=== PATIENT | female | born 1985 | race Caucasian/White ===

== ENCOUNTER 2017-07-07 16:12 | Inpatient (IN) ==
[2017-07-07] MEDS ORDERED: FAMOTIDINE PB 20 MG/50 ML BAG IV ONE ×2 (16:19→16:47)
[2017-07-07] MEDS ORDERED: CITRIC ACID/SODIUM CITRATE 30ml PO ONE ×2 (16:19→16:47)
--- OUTSIDE RECORDS SUMMARY | 2017-07-07 16:20 | External Medical Summary | Continuity of Care Document ---
:1985 Author Organization [facility] Address [address] [place], [place] [id number] Phone Care Team Providers Name Role Phone Bobby Harmon Unavailable Unavailable Allergies, Adverse Reactions, Alerts Substance Reaction Severity Status No Known Drug Allergies Unknown Active Medications Medication Instructions Dosage Effective Dates Status Comments (start - stop) 28 mg take 1 tablet by Not Available - Active iron-800 mcg oral route every tablet day folic acid 800 mcg take 1 tablet by 0.8 MG - Active Tab oral route every day Problems Condition Effective Dates (start - stop) Clinical Status 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) - (routine) w/o abn findings Supervision of other high risk - pregnancies, second trimester Twin , - dichorionic/diamniotic, second trimester 20 weeks gestation of - Secondary amenorrhea Uterine size-date discrepancy, unspecified trimester Secondary amenorrhea Irregular Menses Supervision of other high risk - pregnancies, first trimester Twin , - dichorionic/diamniotic, first trimester Encntr screen for infections w sexl - mode of transmiss Encounter for screening for oth - infec/parastc diseases Encounter for screening of - mother 12 weeks gestation of - Supervision of other high risk - pregnancies, first trimester Twin , - dichorionic/diamniotic, second trimester 15 weeks gestation of - Supervision of other high risk - pregnancies, second trimester 20 weeks gestation of - Uterine size-date discrepancy, - unspecified trimester Twin , - monochorionic/diamniotic, first trimester Twin , - dichorionic/diamniotic, first trimester Pap Smear Screening, Cervix - Encounter for test, result unknown Encounter for test, result unknown Procedures Procedure Date Ultrasound exam of preg uterus, complete Ultrasound exam of preg uterus, complete, Each Addtl Gestation Results Test Name Date and Time Measure Units Reference Range Abnormal Flag Comments Unknown Advance Directives Directive Yes / No Effective Date File Name Unknown Encounters Encounter Practice Location Reason(s) Diagnoses Date Provider Care Team Description For Visit Members Yady Juarez Supervision of Farhad Referring In Womens other high risk [place] [address] Provider: Health [place], pregnancies, 7 Medical Isabelle PO Box second Center [facility], [facility] 1522, [email or web address] weeks , [facility] Lina, gestation of 120, [address] [place], [facility], , Larry [place], [id number] [place], tel:+ , [place]. [id number]. tel: tel:+[phone] Yady [place] Supervision of Farhad Referring In Womens Ultrasound other high risk [place] [address] Provider: Health [place], pregnancies, 7 Medical Isabelle PO Box second [facility], [facility] 1522, trimesterTmohit Monae, [facility] Lina, , 120, [address] F[place], dichorionic/diamn Larry, [facility] 120, , iotic, second Larry FLEMING, [email or web address] weeks [id number] [place], tel:+ gestation of , [place]. [id number]. tel: tel:+[phone] Yady Juarez Supervision of Farhad Referring In Womens other high risk [place] [address] Provider: Health [place], pregnancies, 7 Medical Isabelle PO Box first [facility], 700 1522, trimesterTwin , [facility] [place], , 120, [address] F[place], dichorionic/diamn Larry, [place] 120, , iotic, second LONNIE, Larry, [place] [id number] weeks [place]ONNIE, tel: gestation of , [place]. [id number]. tel: tel:+[phone] Yady [place] Supervision of December-3 Farhad Referring In Womens other high risk 1-201 [place]. 700 Provider: Health [place], pregnancies, 7 Medical Isabelle PO Box [facility], 700 1522, trimesterTmohit Monae, [facility] Lina, , 120, [address] FLEM[place], dichorionic/diamn [place], [facility] 120, , iotic, first [place]ONNIE, [place], [place] trimesterEncntr [place], tel: screen for , [place]. [id number] infections w sexl tel: tel:+[phone] mode of [phone] transmissEncounte r for screening for oth infec/parastc diseasesEncounter for screening of weeks gestation of Yady Juarez Secondary December-1 Farhad Referring In Womens amenorrhea 0-201 [place]. 700 Provider: Health [place], 7 Medical Isabelle PO Box [facility], 700 1522, , [facility] [place], 120, [address] FLE[place], [place], [facility] 120, , [place]ONNIE, [place], [place] [id number] [place], tel: , [place]. [id number]. tel: tel:[phone] aYdy [place] Uterine size-date December- Farhad Referring In Womens Ultrasound discrepancy, 0-201 [place]. 700 Provider: Health [place], unspecified 7 Medical Isabelle PO Box trimesterTwin [facility], 700 1522, , Dr, [facility] [place], monochorionic/celsa 120, Center Dr FLEM[place], mniotic, first [place], [facility] 120, , trimesterTwin Larry F[place], [place] , [place], tel:+ dichorionic/diamn , [place]. [id number] iotic, first tel: tel:[phone] trimester [phone] Yady [place] Secondary Apr-2 Farhad Referring In Womens amenorrheaUterine 0-201 [place]. 700 Provider: Health FAZAL, size-date 7 Medical Isabelle PO Box discrepancy, Center [facility], 700 1522, unspecified , [facility] Lina, trimester 120, Center Dr FLE[place], [place], Denis 120, [id number], [place]ONN[place], [place], [id number] [place], tel: , [place]. [id number]. tel: tel: [phone] Associates Larry Irregular Menses Apr-0 [place] In Womens 4-201 Jennifer. Health FAZAL, 7 700 PO Box Medical 1522, [address] Lina, [facility] LONNIE, 120, [id number], [place], [place], tel:[phone] , [place]. tel: [phone] Associates Larry Encounter for Feb- [place] In Womens test, - Jennifer. Health FAZAL, result 7 700 PO Box unknownEncounter [facility] 1522, for [facility], test, result , [facility], unknown 120, , [place], [place], tel:[phone] , [place]. 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 Provider: Health FAZAL, (routine) w/o abn 6 700 Isabelle PO Box findingsPap Smear [facility], 700 1522, Screening, Cervix Center [facility] Dr Lina, [facility] Dr FLEMING, 120, Denis 120, [id number], [place], [place], [place], tel:[phone]. , [place]. tel: tel: [phone] Associates Larry December- [place] In Womens 3-201 Jennifer. Health FAZAL, 2 700 PO Box Medical 1522, [address] Lina, [facility] LONNIE, 120, [id number], [place], [place], tel:[phone] , [place]. tel: [phone] Family History Family Member Diagnosis Age At Onset Paternal Grandfather Diabetes mellitus Maternal Grandfather Hypertension Maternal Grandmother Cardiovascular Disease Paternal Grandmother Cardiovascular Disease Paternal Grandmother Cancer, colon 91 Paternal Grandfather Stroke Mother Cancer, breast 45 Maternal Grandmother Osteoporosis Paternal Grandmother Diabetes mellitus Maternal Grandmother Diabetes mellitus Immunizations Vaccine Date Status Comments Unknown Payers Payer name Insurance type Covered constitution party ID Authorization(s) [employer] [place] [id number] Social History Type Description Quantity Date Captured Unknown Vital Signs Date / Height Weight BMI Pulse Blood Temperature Respiratory Body Head BMI Time: Rate Pressure Rate Surface Circumference percentile Area Unknown Chief Complaint And Reason For Visit Unknown Chief Complaint And Reason For Visit Reason For Referral Reason For Referral Unknown Plan Of Care Date Type Action Status Goal Lifestyle education regarding completed diet Appointment Bryanna Bishop BOOKED Future Order: Radiology Order Complete OB Ultrasound > 14 Ordered Weeks ([id number]) Future Order: Lab Order Pap Smear With HPV Reflex If Ordered ASCUS ([id number]) Date Type Problem Goal Intervention Status Start Date Unknown. History Of Present Illness Encounter Date Complaint History Of Present Illness This patient has no known history of present illness Functional Status Encounter Date Functional Assessment Cognitive Assessment Unknown Medications Administered Medication Instructions Dosage Effective Dates (start - stop) Status Comments Drug Treatment Unknown Instructions Date Instruction Additional Information HIV and other routine tests risk factors identified by history anticipated course of care nutrition and weight gain counseling, special diet toxoplasmosis precautions (cats / raw meat) sexual activity exercise indications for ultrasound influenza vaccine environmental / work hazards travel use of any medications (including supplements, vitamins, herbs, OTC drugs) domestic violence seat belt use childbirth classes / hospital facilities hospital registration genetic testing new ob handbook Zika virus assessment & precautions Giving encouragement to exercise Related to Body mass index 33.0-33.9 Lifestyle education regarding diet Related to Body mass index 33.0-33.9
--- OUTSIDE RECORDS SUMMARY | 2017-07-07 16:21 | External Medical Summary | Continuity of Care Document ---
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 findings Twin , - dichorionic/diamniotic, second trimester 24 weeks gestation of - Secondary amenorrhea Uterine [...] second trimester 15 weeks gestation of - Twin , - monochorionic/diamniotic, first trimester Twin , - dichorionic/diamniotic, first trimester Uterine size-date discrepancy, - unspecified trimester Supervision of other high risk - pregnancies, second trimester Twin , - dichorionic/diamniotic, second trimester 20 weeks gestation of - Supervision of other high risk - pregnancies, second trimester 20 weeks gestation of - Pap Smear Screening, Cervix - Encounter for test, result unknown Encounter for test, result unknown Procedures Procedure Date OB Visit No Charge Results Test Name Date and Time Measure Units Reference Range Abnormal Flag Comments Unknown Advance Directives Directive Yes / No Effective Date File Name Unknown Encounters Encounter Practice Location Reason(s) Diagnoses Date Provider Care Team Description For Visit Members Yady Ju[place] Twin , Farhad Referring In Womens dichorionic/diamn -201 [place]. 700 Provider: David DIEHL [facility], [facility] 7 Medical Isabelle PO Box weeks [facility], 700 1522, gestation of Dr, [facility] [place], 120, [address] [place], Larry, [facility] 120, [id number], LONNIE, [place], [id number] [place], tel: , [place]. [id number]. [id number] tel: tel:[phone] Yady [place] Supervision of Feb- Farhad Referring In Womens other high risk [place]. 700 Provider: Health FAZAL, pregnancies, 7 Medical Isabelle PO Box [facility], 700 1522, [email or web address] weeks Denis Monae, gestation of 120, [address] Dr F[place], Larry, [facility] 120, [id number], LONNIE, [place], [id number] [place], tel: , . [id number]. [id number] tel: tel:[phone] Yady [place] Supervision of Feb- Farhad Referring In Womens Ultrasound other high risk [place]. 700 Provider: Health [place], pregnancies, 7 Medical Isabelle PO Box second Center [facility], 700 1522, trimesterTwin Denis Monae, , 120, Center Dr FLE[place], dichorionic/diamn Larry, Denis 120, [id number], iotic, second Larry F[place], [place] [id number] weeks [id number] [place], tel:+2 gestation of , [place]. [id number]. tel: tel:+[phone] Yady [place] Supervision of Matt-2 Farhad Referring In Womens other high risk 3-201 [place]. 700 Provider: Health [place], pregnancies, 7 Medical Isabelle PO Box first Center [facility], 700 1522, trimesterTmohit Monae, [facility], , 120, [address] Dr FLE[place], dichorionic/diamn Larry, Denis 120, [id number], iotic, second LONNIE, [place], [place] [id number] weeks [id number] LONNIE, tel:+[phone] gestation of , [place]. [id number] tel: tel:+[phone] Yady [place] Supervision of December-3 Farhad Referring In Womens other high risk 1-201 [place]. 700 Provider: Health [place], pregnancies, 7 Medical Isabelle PO Box first Center [facility], 700 1522, trimesterTmohit Monae, [facility], , 120, Center Dr F[place], dichafshanonic/diamn Larry, [facility] 120, , iotic, first LONNIE, [place], [place] trimesterEncntr [id number] [place], tel:+ screen for , [place]. [id number]. [id number] infections w sexl tel: tel:+[phone] mode of [phone] transmissEncounte r for screening for oth infec/parastc diseasesEncounter for screening of bevecp52 weeks gestation of Yady Juarez Secondary December-1 Farhad Referring In Womens amenorrhea 0-201 [place]. 700 Provider: Health [place], 7 Medical Isabelle PO Box Center [facility], 700 1522, , [facility], 120, Center Larry Anderson, [facility] 120, [id number], LONNIE [place], [place] [id number] [place], tel:+[phone] , [place]. [id number] tel: tel:[phone] Yady [place] Twin , December-1 Farhad Referring In Womens Ultrasound monochorionic/celsa 0-201 [place]. 700 Provider: David DIEHL, mniotic, first 7 Medical Isabelle PO Box trimesterTwin [facility], 700 1522, , , [facility] Lina, dichorionic/diamn 120, Center Dr FLEM[place], iotic, first [place], Denis 120, , trimesterUterine [place], [place], [place] size-date [place], tel: discrepancy, , [place]. [id number]. unspecified tel: tel: trimester [phone] Associates Larry Secondary Apr-2 Farhad Referring In Womens amenorrheaUterine 0-201 [place]. 700 Provider: David DIEHL, size-date 7 Medical Isabelle PO Box discrepancy, [facility], 700 1522, unspecified , [facility] Lina, trimester 120, Center Dr F[place], [place], [place] 120, , [place], [place], [place], tel: , [place]. [id number]. tel: tel: [phone] Associates Larry Irregular Menses Apr-0 [place] In Womens 4-201 Jennifer. David DIEHL, 7 700 PO Box Medical 1522, [address] Lina, [facility] LONNIE, 120, , [place], [place], tel: [phone] , [place]. tel: [phone] Yady [place] Encounter for Sep-1 [place] In Womens test, 3-201 Jennifer. Health FAZAL, result 7 700 PO Box unknownEncounter Medical 1522, for [facility], test, result , [facility] LONNIE, unknown 120, , [place], [place], tel: [phone] , [place]. 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 Provider: David DIEHL, (routine) w/o abn 6 700 Isabelle PO Box findingsPap Smear [facility], 700 1522, Screening, Cervix [facility] Lina, [facility] Dr FLEMING, 120, Denis 120, [id number], Larry [place], [place], [place], tel: [phone]. , [place]. tel: tel: [phone] Yady [place] December- [place] In Womens 3-201 Jennifer. [facility], 2 700 PO [facility] 1522, [place] [place]ina, , Denis [place], 120, [id number], Larry, LONNIE, tel: [phone] , . tel: [phone] Family History Family Member Diagnosis Age At Onset Paternal Grandfather Diabetes mellitus Maternal Grandfather Hypertension Maternal Grandmother Cardiovascular Disease Paternal Grandmother Cardiovascular Disease Paternal Grandmother Cancer, colon 91 Paternal Grandfather Stroke Mother Cancer, breast 45 Maternal Grandmother Osteoporosis Paternal Grandmother Diabetes mellitus Maternal Grandmother Diabetes mellitus Immunizations Vaccine Date Status Comments Unknown Payers Payer name Insurance type Covered green party ID Authorization(s) [facility] LONNIE [id number] Social History Type Description Quantity Date Captured Alcohol Use Details No Caffeine Use Details Unknown Tobacco Use Status Unknown Smoking Status Never smoker Vital Signs Date / Height Weight BMI Pulse Blood Temperature Respiratory Body Head BMI Time: Rate Pressure Rate Surface Circumference percentile Area 160.70 26.7 lbs 4 mm[Hg] 1:39 kg/m PM eter (2) 260.70 43.3 lbs 8 mm[Hg] 1:39 kg/m PM eter (2) Chief Complaint And Reason For Visit Unknown Chief Complaint And Reason For Visit Reason For Referral Reason For Referral Unknown Plan Of Care Date Type Action Status Goal Lifestyle education regarding completed diet Appointment Bryanna Bishop BOOKED Appointment Bryanna Bishop BOOKED Future Order: Radiology Order Complete OB Ultrasound > 14 Ordered Weeks ([id number]) Future Order: Lab Order Pap Smear With [...]
--- OUTSIDE RECORDS SUMMARY | 2017-07-07 16:21 | External Medical Summary | Continuity of Care Document ---
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 700 Provider: Health PA, pregnancies, 7 Medical Isabelle PO Box [facility], [facility] 1522, [email or web address] weeks , [facility], gestation of 120, Center Dr F[place], [place], [place] 120, , LONNIE, [place], [id number] [place], tel:+ , [place]. [id number]. tel: tel:[phone] Yady [place] Supervision of Farhad Referring In Womens Ultrasound other high risk [place]. 700 Provider: Health PA, pregnancies, 7 Medical Isabelle PO Box [facility], [facility] 1522, trimesterTwin , [facility], , 120, Center Dr F[place], dichorionic/diamn Larry, [place] 120, [id number], iotic, second Larry FLEMING, [id number] weeks LONNIE, tel: gestation of , [place]. [id number]. tel: tel:+[phone] Yady [place] Farhad Referring In Womens 6-201 [place]. 700 Provider: Health PA, 7 Medical Isabelle PO Box [facility], [facility] 1522, , [facility], 120, [address] Dr F[place], Larry, [place] 120, [id number], LONNIE, [place], [id number] [place], tel: , [place]. [id number]. tel: tel:+ [phone] Yady [place] Supervision of Jan-2 Farhad Referring In Womens other high risk 3-201 [place]. 700 Provider: Health PA, pregnancies, 7 Medical Siabelle PO Box rust Center [facility], 700 1522, trimesterTmohit Monae, [facility] [place], , 120, Center Dr F[place], dichorionic/diamn Larry, [place] 120, [id number], iotic, second LONNIE, [place], [email or web address] weeks [id number] [place]IE, tel:2 gestation of , [place]. [id number]. tel: tel:[phone] Yady [place] Supervision of December-3 Farhad Referring In Womens other high risk 1-201 [place]. 700 Provider: Health PA, pregnancies, 7 Medical Isabelle PO Box [facility], 700 1522, trimesterTmohit Monae, [facility] [place], , 120, Center Dr FLE[place], dichorionic/diamn Larry, [place] 120, [id number], iotic, first LONNIE, [place], trimesterEncntr [id number] [place]IE, tel: screen for , [place]. [id number]. infections w sexl tel: tel: mode of [phone] transmissEncounte r for screening for oth infec/parastc diseasesEncounter for screening of [id number] weeks gestation of Yady [place] Secondary December- Farhad Referring In Womens amenorrhea 0-201 [place]. 700 Provider: David DIEHL, 7 Medical Isabelle PO Box [facility], 700 1522, , [place], 120, [address] Dr F[place], Larry, [place] 120, [id number], [place]NIE, [place], [id number] [place], tel: , [place]. [id number]. tel: tel:[phone] Yady [place] Uterine size-date December- Farhad Referring In Womens Ultrasound discrepancy, 0-201 [place]. 700 Provider: Health FAZAL, unspecified 7 Medical Isabelle PO Box trimesterTwin [facility], 700 1522, , Dr, [place], monochorionic/celsa 120, Center Dr FLEMING, mniotic, first [place], Denis 120, [id number], trimesterTwin LONNIE, [place], , [place], tel: dichorionic/diamn , [place]. . iotic, first tel: tel: trimester [phone] Associates Larry Secondary Apr-2 Farhad Referring In Womens amenorrheaUterine 0-201 [place]. 700 Provider: Health FAZAL, size-date 7 Medical Isabelle PO Box discrepancy, [facility], 700 1522, unspecified , [facility] [place], trimester 120, Center Dr F[place], [place], Denis 120, , [place], [place], [place], tel: , [place]. . tel: tel: [phone] Associates Larry Irregular Menses Apr-0 [place] In Womens 4-201 Jennifer. Health FAZAL, 7 700 PO Box Medical 1522, [place] [address] Lina, [place], 120, [id number], [place], [place], tel:[phone] , [place]. tel: [phone] Yady [place] Encounter for Feb-1 [place] In Womens test, 3-201 Jennifer. Health FAZAL, result 7 700 PO Box unknownEncounter Medical 1522, for [facility] [place], test, result , [place] LONNIE, unknown 120, , [place], [place], tel:[phone] , [place]. 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 Provider: Health FAZAL, (routine) w/o abn 6 700 Isabelle PO Box findingsPap Smear [facility], 700 1522, Screening, Cervix [place] [address], [facility] Dr FLEMING, 120, Denis 120, [id number], Larry, [place], [place], [place], tel:[phone]. , [place]. tel: tel: [phone] Yady [place] In Womens 3-201 Jennifer. [facility], 2 700 PO Box Medical 1522, [address] [place] [address] Lina, [place], 120, [id number], [place], [place], tel:[phone] , [place]. tel: [phone] Family History Family Member Diagnosis Age At Onset Paternal Grandfather Diabetes mellitus Maternal Grandfather Hypertension Maternal Grandmother Cardiovascular Disease Paternal Grandmother Cardiovascular Disease Paternal Grandmother Cancer, colon 91 Paternal Grandfather Stroke Mother Cancer, breast 45 Maternal Grandmother Osteoporosis Paternal Grandmother Diabetes mellitus Maternal Grandmother Diabetes mellitus Immunizations Vaccine Date Status Comments Unknown Payers Payer name Insurance type Covered libertarian ID Authorization(s) [facility] LONNIE [id number] Social History Type Description Quantity Date Captured [...] Complete OB Ultrasound > 14 Ordered Weeks ([id number]) Future Order: Lab Order Pap Smear With [...]
--- OUTSIDE RECORDS SUMMARY | 2017-07-07 16:21 | External Medical Summary | Continuity of Care Document ---
:1985 Author Organization [facility] Address [address] [place], [place] [id number] Phone Allergies, Adverse Reactions, Alerts Substance Reaction Severity Status No Known Drug Allergies Unknown Active Medications Medication Instructions Dosage Effective Dates Status Comments (start - stop) Rhophylac 1,500 - Active unit (300 mcg)/2 mL injection syringe 28 mg take 1 tablet by Not Available - Active iron-800 mcg oral route every tablet day folic acid 800 mcg take 1 tablet by 0.8 MG - Active Tab oral route every day Problems Condition Effective Dates (start - stop) Clinical Status Encntr for rn gynecology exam (general) - (routine) w/o abn findings Supervision of other high risk - pregnancies, third trimester 28 weeks gestation of - Type O blood, Rh negative - Secondary amenorrhea Uterine size-date discrepancy, unspecified [...] Supervision of other high risk - pregnancies, third trimester Twin , - dichorionic/diamniotic, third trimester 28 weeks gestation of - Uterine size-date discrepancy, - unspecified trimester Twin , - monochorionic/diamniotic, first trimester Twin , - dichorionic/diamniotic, first trimester Twin , - dichorionic/diamniotic, second trimester 24 weeks gestation of - Twin , - dichorionic/diamniotic, third trimester 30 weeks gestation of - Pap Smear Screening, Cervix - Encounter for test, result unknown Encounter for test, result unknown Procedures Procedure Date Injection Administration Rhophylac 100 Units Antibody Screen, RBC Glucose test Hemoglobin count, colorimetric Hematocrit blood count Venpnctr fngr/heel/ear stick routne OB Visit No Charge Results Test Name Date and Time Measure Units Reference Range Abnormal Flag Comments Panel Description: Glucose [Mass/volume] in Serum or Plasma --1 hour post 50 g glucose PO GLUCOSE, 127 mg/dL <140 N Test performed at [facility] [employer] S[employer]EN 16:05:00 Tutor [id number] (50G)-[address] [place] [address]Aalsyboc: SIM OLMSTEAD DO,MPH Panel Description: HEMOGLOBIN + HEMATOCRIT HEMOGLOBIN 16:05:00 11.7 g/dL 11.7-15.5 N HEMATOCRIT 16:05:00 34.2 % 35.0-45.0 L Test performed at [facility] [id number] [facility] [place] [address]Lfoynqbl: SIM OLMSTEAD DO,MPH Panel Description: ANTIBODY SCREEN, RBC W/REFL ID, TITER AND AG ANTIBODY NO ANTIBODIES N Reference range SCREEN, RBC 16:05:00 DETECTED No antibodies W/REFL ID, detected This assay is a TITER AND AG screening test for the detection of red blood cell antibodies. The test is not to be used for pretransfusion screening or for the medical management of an alloimmunized . REPORT COMMENT:FASTING:UNKNOWNTest performed at [facility] [id number] [place] [address]Aueblxmt: SIM OLMSTEAD DO,MPH Advance Directives Directive Yes / No Effective Date File Name Unknown Encounters Encounter Practice Location Reason(s) Diagnoses Date Provider Care Team Description For Visit Members Yady [place] Twin , Farhad Referring In Womens dichorionic/diamn 5-201 [facility] 700 Provider: David DIEHL [facility] [place] [address] Medical Isabelle [address] [id number] weeks [place] [address] 1522, gestation of Dr [facility] [place], 120, [place] Anderson, [facility] 120, , Larry [place], [id number] [place], tel: , [place]. [id number]. [id number] tel: tel: [phone] Yady [place] Supervision of Sep-2 Farhad Referring In Womens other high risk 0-201 [place]. 700 Provider: David DIEHL, pregnancies, 7 Medical Isabelle PO Box third [place] [address]22, weeks gestation Denis Monae, of pregnancyType 120, Center Dr FLE[place], O blood, Rh Larry, [facility] 120, , negative Larry F[place], [id number] [place], tel: , . [phone]. [id number] tel: tel: [phone] Yady [place] Supervision of Sep-2 Farhad Referring In Womens Ultrasound other high risk 0-201 [place]. 700 Provider: David DIEHL, pregnancies, 7 Medical Isabelle PO Box third [place] [address] 1522, trimesterTwin Denis Monae, , 120, Center Dr FLEM[place], dichorionic/diamn Larry, [facility] 120, , iotic, third Larry [place], [place] [email or web address] weeks [id number] [place], tel:+ gestation of , [place]. [id number]. tel: tel:+[phone] Yady [place] Twin , Aug-2 Farhad Referring In Womens dichorionic/diamn 5-201 [place]. 700 Provider: Health PA, iotic, second 7 Medical Isabelle PO Box weeks [facility], [facility] 1522, gestation of , [facility] [place], 120, [address] F[place], [facility], [id number], [place], [place] [id number] [place], tel: , [place]. [id number]. [address] tel: tel:[phone] [place] Supervision of Feb-2 Farhad Referring In Womens other high risk 7-201 [place]. 700 Provider: Health [place], pregnancies, 7 Medical Isabelle PO Box second [facility], [facility] 1522, [id number] weeks Dr [facility] Lina, gestation of 120, [place] Dr FLEMING, [facility] 120, , [place], [place], tel: , [place]. [phone]. [address] tel: tel:[phone] [place] Supervision of Feb-2 Farhad Referring In Womens Ultrasound other high risk 7-201 [place]. 700 Provider: Health PA, pregnancies, 7 Medical Isabelle PO Box second [facility], [facility] 1522, trimesterTmohit Monae [facility] [place], , 120, Center Dr FLEM[place], [facility] 120, , iotic, second [place]NIE, [place], [place] [email or web address] weeks [place]IE, tel:+ gestation of , [place]. [id number]. [address] tel: tel:+[phone] [place] Supervision of Matt-2 Farhad Referring In Womens other high risk 3-201 [place]. 700 Provider: Health [place], pregnancies, 7 Medical Isabelle PO Box first [facility], [facility] 1522, trimesterTmohit Monae [facility] Lina, , 120, Center Dr FLEM[place], dichorionic/diamn Larry, [facility] 120, [id number], iotic, second [place]ONNIE, [place], [email or web address] weeks [place]NIE, tel: gestation of , [place]. [id number]. tel: tel:[phone] Yady [place] Supervision of Farhad Referring In Womens other high risk 1-201 [place]. 700 Provider: Health PA, pregnancies, 7 Medical Isabelle PO Box [facility], 700 1522, trimesterTwin , [facility], , 120, Center Dr FLEM[place], dichorionic/diamn Larry, [facility] 120, , iotic, first [place]ONNIE, [place], trimesterEncntr [place]IE, tel: screen for , [place]. [id number]. infections w sexl tel: tel:[phone] mode of [phone] transmissEncounte r for screening for oth infec/parastc diseasesEncounter for screening of [id number] weeks gestation of Yady [place] Secondary December- Farhad Referring In Womens amenorrhea 0-201 [place]. 700 Provider: David DIEHL, 7 Medical Isabelle PO Box [facility], [facility] 1522, , [facility], 120, Center Larry Anderson, [facility] 120, [id number], [place] [id number] [place], tel: , [place]. [id number] tel: tel:[phone] Yady [place] Uterine size-date December- Farhad Referring In Womens Ultrasound discrepancy, 0-201 [place]. 700 Provider: Health PA, unspecified 7 Medical Isabelle PO Box trimesterTwin [facility], [facility] 1522, , Dr, [facility] Lina, monochorionic/celsa 120, Center Dr FLEM[place], mniotic, first [place], [facility] 120, [id number], trimesterTwin Larry FLEMING, , [place]IE, tel: dichorionic/diamn , [place]. [id number] iotic, first tel: tel: trimester [phone] Yady [place] Secondary Apr-2 Farhad Referring In Womens amenorrheaUterine 0-201 [place]. 700 Provider: David DIEHL, size-date 7 Medical Isabelle PO Box discrepancy, [facility], 700 1522, unspecified , [facility] Lina, trimester 120, Center Dr FLEM[place], Larry, Denis 120, [id number], [place], [place], [id number] [place], tel: , [place]. [id number]. tel: tel: [phone] Associates [place] Irregular Menses Apr-0 [place] In Womens 4-201 Jennifer. David DIEHL, 7 700 PO Box Medical 1522, [place] Dr Lina, [facility] LONNIE, 120, [id number], [place], [place], tel:[phone] , [place]. tel: [phone] Yady [place] Encounter for Sep- Jean Pierre In Womens test, 3-201 Jennifer. David DIEHL, result 7 700 PO Box unknownEncounter [facility] 1522, for [facility], test, result , [facility] LONNIE, unknown 120, [id number], [place], [place], tel:[phone] , [place]. tel: [phone] Yady [place] Encntr for rn gynecology Matt-0 [place] Referring In Womens exam (general) 8-201 Jennifer. Provider: David DIEHL, (routine) w/o abn 6 700 Isabelle PO Box findingsPap Smear [facility], 700 1522, Screening, Cervix [facility] Dr Lina, [facility] Dr FLEMING, 120, Denis 120, [id number], Larry, [place], [place], [place], tel:[phone]. , [place]. tel: tel: [phone] Yady [place] May-1 [place] In Womens 3-201 Jennifer. David DIEHL, 2 700 PO Box Medical 1522, [place] Dr Lina, [facility] LONNIE, 120, [id number], [place], [place], tel:[phone] , [place]. tel:[phone] Family History Family Member Diagnosis Age At Onset Paternal Grandfather Diabetes mellitus Maternal Grandfather Hypertension Maternal Grandmother Cardiovascular Disease Paternal Grandmother Cardiovascular Disease Paternal Grandmother Cancer, colon 91 Paternal Grandfather Stroke Mother Cancer, breast 45 Maternal Grandmother Osteoporosis Paternal Grandmother Diabetes mellitus Maternal Grandmother Diabetes mellitus Immunizations Vaccine Date Status Comments Rhophylac completed Source: New Immunization Record Influenza, injectable, completed Source: Other Provider quadrivalent, preservative free, 3 yrs or older Payers Payer name Insurance type Covered republican ID Authorization(s) [facility] [id number] [facility] [id number] Social History Type Description Quantity Date Captured Alcohol Use Details No Caffeine Use Details Unknown Tobacco Use Status Unknown Smoking Status Never smoker Vital Signs Date / Height Weight BMI Pulse Blood Temperature Respiratory Body Head BMI Time: Rate Pressure Rate Surface Circumference percentile Area 268.00 44.5 130/84 -2017 lbs 9 mm[Hg] 4:09 kg/m PM eter (2) Chief Complaint And Reason For Visit Unknown Chief Complaint And Reason For Visit Reason For Referral Reason For Referral Unknown Plan Of Care Date Type Action Status Goal Lifestyle education regarding completed diet Appointment Bryanna Bishop BOOKED Appointment Bryanna Bishop BOOKED Appointment Bryanna Bishop BOOKED Appointment Bryanna Bishop BOOKED Appointment Bryanna Bishop BOOKED Appointment Bryanna Bishop BOOKED Appointment Bryanna Bishop BOOKED Appointment Bryanna Bishop BOOKED Appointment Bryanna Bishop BOOKED Appointment Bryanna Bishop BOOKED Appointment Bryanna Bishop BOOKED Appointment Bryanna Bishop BOOKED Future Order: Radiology Order Complete OB Ultrasound > 14 Ordered Weeks ([id number]) Future Order: Radiology Order Ultrasound OB Follow-up ([id number]) Ordered Future Order: Lab Order Pap Smear With [...]
--- OUTSIDE RECORDS SUMMARY | 2017-07-07 16:21 | External Medical Summary | Continuity of Care Document ---
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 Secondary amenorrhea Uterine size-date discrepancy, unspecified trimester Supervision of other high risk - pregnancies, third trimester 28 weeks gestation of - Type O blood, Rh negative - Secondary amenorrhea Irregular Menses Supervision of other [...] third trimester 28 weeks gestation of - Supervision of other high risk - pregnancies, third trimester Twin , - dichorionic/diamniotic, third trimester 33 weeks gestation of - Supervision of other high risk - pregnancies, third trimester Twin , - dichorionic/diamniotic, third trimester 34 weeks gestation of - Uterine size-date discrepancy, - unspecified trimester Twin , - monochorionic/diamniotic, first trimester Twin , - dichorionic/diamniotic, first trimester Twin , - dichorionic/diamniotic, second trimester 24 weeks gestation of - Twin , - dichorionic/diamniotic, third trimester Maternal care for breech presentation, - fetus 1 33 weeks gestation of - Twin , - dichorionic/diamniotic, third trimester 35 weeks gestation of - Twin , - dichorionic/diamniotic, third trimester 30 weeks gestation of - Twin , - dichorionic/diamniotic, third trimester 35 weeks gestation of - Twin , - dichorionic/diamniotic, third trimester 34 weeks gestation of - Pap Smear Screening, Cervix - Encounter for test, result unknown Encounter for test, result unknown Procedures Procedure Date Unknown Results Test Name Date and Time Measure Units Reference Range Abnormal Flag Comments Unknown Advance Directives Directive Yes / No Effective Date File Name Unknown Encounters Encounter Practice Location Reason(s) Diagnoses Date Provider Care Team Description For Visit Members [facility] [place] Twin , Nov-0 Farhad Referring In Womens dichorionic/diamn 8-201 [place]. 700 Provider: David DIEHL iotic, third 7 Medical Isabelle PO Box weeks [place], 700 1522, gestation of Denis Monae, 120, Center Dr [place], Larry, Denis 120, [id number], [place], [place] [id number] [place], tel:+ , [place]. [id number]. tel: tel:+ [phone] Associates [place] Twin , Nov-0 Farhad Referring In Womens Ultrasound dichorionic/diamn 8-201 [place]. 700 Provider: David DIEHL iotic, third 7 Medical Isabelle PO Box [email or web address] [facility], 700 1522, gestation of Denis Monae, 120, Center [place] Anderson, Denis 120, , LONNIE, [place] [id number] [place], tel: , [place]. [id number]. tel: tel:+ [phone] Yady [place] Supervision of Nov-0 [place] Referring In Womens other high risk 2-201 [place]. Provider: David DIEHL, pregnancies, 7 700 Isabelle PO Box third [facility] [place], 700 1522, trimesterTwin [place], , Drive, Erin Dr FLEM[place], dichorionic/diamn Suite Denis 120, [id number], iotic, third 120, [place], [place] [id number] weeks LONNIE [place], tel: gestation of [place]IE, [id number]. [id number], tel:+ [place]. [phone] tel: [phone] Yady [place] Twin , Nov-0 Farhad Referring In Womens Ultrasound dichorionic/diamn 2-201 [place]. 700 Provider: David DIEHL iotic, third 7 Medical Isabelle PO Box [id number] [facility], 700 1522, gestation of Denis Monae, 120, Center [place] Anderson, Denis 120, [id number], LONNIE [place], [place] [id number] [place]NIE, tel:+[phone] , [place]. [id number] tel: tel:+[phone] Yady [place] Twin , Oct-2 Farhad Referring In Womens dichorionic/diamn - [place]. 700 Provider: Health FAZAL iotic, third 7 Medical Isabelle PO Box trimesterMaternal [facility], [facility] 1522, care for breech , [facility] Lina, presentation, 120, Center Dr FLEM[place], fetus 133 weeks [place], [facility] 120, [id number], gestation of [place]NIE, [place] [id number] [place], tel:+ , [place]. [id number]. tel: tel:[phone] Yady [place] Supervision of Oct-2 Farhad Referring In Womens Ultrasound other high risk [place]. 700 Provider: Health FAZAL, pregnancies, 7 Medical Isabelle PO Box third [facility], [facility] 1522, trimesterTwin , [facility] Lina, , 120, Center Dr F[place], dichorionic/diamn Larry, [facility] 120, [id number], iotic, third LONNIE [place], [place] [email or web address] weeks [id number] [place], tel:+2 gestation of , [place]. [id number]. tel: tel:[phone] Yady [place] Oct-2 Farhad In Womens [place]. 700 Health FAZAL, Medical PO Box Center 1522, Denis Monae, 120, Larry [place], [id number], [place], [place] [id number] tel:+ , [place]. tel: [phone] Yady [place] Twin , Oct-0 Farhad Referring In Womens dichorionic/diamn - [place]. 700 Provider: Health FAZAL, iotdestiney, third 7 Medical Isabelle PO Box [id number] [facility], [facility] 1522, gestation of , [facility] [place], 120, Center Larry Anderson, [facility] 120, [id number], [place]ONNIE, [place] [id number] [place], tel:+[phone] , [place]. [id number]. tel: tel:[phone] [place] Supervision of Sep-2 Farhad Referring In Womens other high risk 0-201 [place]. 700 Provider: Health PA, pregnancies, 7 Medical Isabelle PO Box third [id number] [facility], [facility] 1522, weeks gestation , [place], of pregnancyType 120, Center Dr FLEM[place], O blood, Rh [place], Denis 120, [id number], negative LONNIE, [place] [id number] [place], tel:+ , [place]. [id number] tel: tel:[phone] Yady [place] Supervision of Sep-2 Farhad Referring In Womens Ultrasound other high risk 0-201 [place]. 700 Provider: Health PA, pregnancies, 7 Medical Isabelle PO Box third [facility], [facility] 1522, trimesterTwin Denis Monae, , 120, Center Dr FLE[place], dichorionic/diamn [place], [facility] 120, [id number], iotic, third Larry [place], [email or web address] weeks LONNIE, tel: gestation of , [place]. [id number]. tel: tel:+[phone] Yady [place] Twin , Aug-2 Farhad Referring In Womens dichorionic/diamn 5-201 [place]. 700 Provider: Health FAZAL, iotic, second 7 Medical Isabelle PO Box [email or web address] weeks [facility], [facility] 1522, gestation of Denis Monae, 120, Center Dr [place], Larry, [facility] 120, [id number], [place] [id number] [place], tel: , [place]. [id number] tel: tel:[phone] Yady [place] Supervision of Shekhar-2 Farhad Referring In Womens other high risk 7-201 [place]. 700 Provider: Health PA, pregnancies, 7 Medical Isabelle PO Box second [facility], [facility] 1522, [id number] weeks Denis Monae, gestation of 120, Center Dr F[place], Larry, Denis 120, [id number], [place], [place] [id number] [place], tel: , [place]. [id number]. [address] tel: tel: [phone] Yady [place] Supervision of Feb-2 Farhad Referring In Womens Ultrasound other high risk 7- [place]. 700 Provider: Health PA, pregnancies, 7 Medical Isabelle PO Box second [facility] [place], 700 1522, trimesterTmohit Monae, [facility], , 120, Center Dr FLEM[place], dichorionic/murrayn Larry, Denis 120, [id number], iotic, second Larry [place], [place] [email or web address] weeks [id number] [place], tel:+[phone] gestation of , [place]. [id number]. tel: tel:[phone] Yady [place] Supervision of Jan-2 Farhad Referring In Womens other high risk 3-201 [place]. 700 Provider: Health PA, pregnancies, 7 Medical Isabelle PO Box first [facility], 700 1522, trimesterTmohit Monae, [facility], , 120, Center Dr FLE[place], dichorionic/murrayn Larry, [facility] 120, [id number], iotic, second Larry [place], [place] [id number] weeks [id number] [place], tel:3162 gestation of , [place]. [id number] tel: tel:[phone] Yady [place] Supervision of December-3 Farhad Referring In Womens other high risk 1-201 [place]. 700 Provider: Health PA, pregnancies, 7 Medical Isabelle PO Box first Center [facility], 700 1522, trimesterTmohit Monae, [facility], , 120, Center Dr FLE[place], dichorionic/murrayn Larry, Denis 120, [id number], iotic, first [place]ONNIE, [place], [place] trimesterEncntr [id number] [place], tel:[phone] screen for , [place]. [id number]. [address] infections w sexl tel: tel:316 mode of [phone] transmissEncounte r for screening for oth infec/parastc diseasesEncounter for screening of weeks gestation of Yady [place] Secondary December- Farhad Referring In Womens amenorrhea 0-201 [place]. 700 Provider: Health PA, 7 Medical Isabelle PO Box Center [facility], 700 1522, Dr, [facility] Lina, 120, Center Larry Anderson, [facility] 120, , [place], [place], [id number] [place], tel: , [place]. [id number]. tel: tel: [phone] Yady [place] Uterine size-date December- Farhad Referring In Womens Ultrasound discrepancy, 0-201 [place]. 700 Provider: David DIEHL, unspecified 7 Medical Isabelle PO Box trimesterTwin [facility], 700 1522, , , [place], monochorionic/celsa 120, Center Dr FLEM[place], mniotic, first Larry, [facility] 120, , trimesterTwin LONNIE, [place], , [place], tel: dichorionic/diamn , [place]. [id number]. iotic, first tel: tel: trimester [phone] Yady [place] Secondary Apr-2 Farhad Referring In Womens amenorrheaUterine 0-201 [place]. 700 Provider: David DIEHL, size-date 7 Medical Isabelle PO Box discrepancy, [facility], 700 1522, unspecified , [facility] Lina, trimester 120, Center Larry Anderson, [facility] 120, , LONNIE, [place], [id number] [place], tel: , [place]. [id number]. tel: tel: [phone] Yady [place] Irregular Menses Apr-0 [place] In Womens 4-201 Jennifer. Health FAZAL, 7 700 PO Box Medical 1522, Center Lina, Denis Monae, 120, , [place], [place], tel:[phone] , [place]. tel: [phone] Yady [place] Encounter for Sep- [place] In Womens test, 3-201 Jennifer. Health PA, result 7 700 [facility], for Erin Lina, test, result Denis Monae, unknown 120, , [place], [place], tel:[phone] , [place]. 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 Provider: Health FAZAL, (routine) w/o abn 6 700 Isabelle PO Box findingsPap Smear [facility] [place], 700 1522, Screening, Cervix [facility] Lina, Denis [place], 120, Denis 120, [id number], [place], [place], [place], tel: [phone]. , [place]. tel: tel: [phone] Yady [place] December- Jean Pierre In Womens 3-201 Jennifer. Health FAZAL, 2 700 PO Box Medical 1522, Center Dr Lina, Denis LONNIE, 120, [id number], [place], [place], tel: [phone] , . tel: [phone] Family History Family Member Diagnosis Age At Onset Paternal Grandfather Diabetes mellitus Maternal Grandfather Hypertension Maternal Grandmother Cardiovascular Disease Paternal Grandmother Cardiovascular Disease Paternal Grandmother Cancer, colon 91 Paternal Grandfather Stroke Mother Cancer, breast 45 Maternal Grandmother Osteoporosis Paternal Grandmother Diabetes mellitus Maternal Grandmother Diabetes mellitus Immunizations Vaccine Date Status Comments Tdap completed Source: New Immunization Record Rhophylac completed Source: New Immunization Record Influenza, injectable, completed Source: Other Provider quadrivalent, preservative free, 3 yrs or older Payers Payer name Insurance type Covered republican ID Authorization(s) [facility] [id number] [facility] [id number] [facility] [id number] Social History Type Description Quantity Date Captured [...] Appointment Bryanna Bishop BOOKED Appointment Bryanna Bishop [facility] 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
--- OUTSIDE RECORDS SUMMARY | 2017-07-07 16:21 | External Medical Summary | Continuity of Care Document ---
:1985 Author Organization [facility] [employer] [facility] Address [address] [place], [place] [id number] Phone Allergies, Adverse Reactions, Alerts Substance Reaction Severity Status No Known Drug Allergies Unknown Active Medications Medication Instructions Dosage Effective Dates Status Comments (start - stop) loperamide 2 mg take 2 capsule by 4 MG - Active capsule oral route after 1st loose stool, followed by 1 capsule after each subsequent loose stool not to exceed 16 mg/day Rhophylac 1,500 - Active unit (300 mcg)/2 mL injection syringe 28 mg take 1 tablet by Not Available - Active iron-800 mcg oral route every tablet day folic acid 800 mcg take 1 tablet by 0.8 MG - Active Tab oral route every day Problems Condition Effective Dates (start - stop) Clinical Status 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) w/o 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 findings Secondary amenorrhea Uterine size-date discrepancy, unspecified trimester Supervision of other high risk - pregnancies, third trimester 28 weeks gestation of - Type O blood, Rh negative - Twin , - dichorionic/diamniotic, third trimester Encounter For Screening For - Streptococcus B 36 weeks gestation of - Secondary amenorrhea Irregular Menses Supervision of [...] trimester Twin , - dichorionic/diamniotic, third trimester 36 weeks gestation of - Supervision of other [...] For Visit Members Yady [place] Twin , Nov- Farhad Referring In Womens dichorionic/diamn 6-201 [facility] 700 Provider: gavi Ahmadi, third 7 Medical Isabelle PO Box trimesterEncounte [facility], [facility] 1522, r For Dr [facility] Lina, Screening For 120, [address] [place], Streptococcus B36 Larry, [facility] 120, , weeks gestation Larry [place], of [place], tel:+ , [place]. [id number]. tel: tel:[phone] Associates Larry Supervision of Farhad Referring In Womens Ultrasound other high risk 6-201 [place]. 700 Provider: David DIEHL pregnancies, 7 Medical Isabelle PO Box third [facility], [facility] 1522, trimesterTwin Denis Monae, , 120, Center Dr [place], dichorionic/murrayn Larry, [facility] 120, , iotic, third Larry F[place], [id number] weeks [id number] [place], tel:+[phone] gestation of , [place]. [id number]. tel: tel:[phone] Yady [place] Twin , Nov-0 Farhad Referring In Womens dichorionic/diamn 8-201 [facility] 700 Provider: David DIEHL iotdestiney, third 7 Medical Isabelle PO Box [id number] weeks [facility], [facility] 1522, gestation of Dr Denis [place], 120, Center Larry Anderson, [facility] 120, , Larry [place] [id number] [place], tel: , [place]. [id number]. tel: tel: [phone] Associates Larry Twin , Nov-0 Farhad Referring In Womens Ultrasound dichorionic/diamn 8-201 [place]. 700 Provider: Health ND iotic, third 7 Medical Isabelle PO Box [id number] weeks [facility], 700 1522, gestation of Denis Monae, 120, Center Dr [place], Larry, [facility] 120, [id number], [place], [place] [id number] [place], tel:+ , [place]. [id number]. tel: tel: [phone] Yady [place] Supervision of Nov-0 [place] Referring In Womens other high risk 2-201 [place]. Provider: Health [place], pregnancies, 7 700 Isabelle PO Box [facility], 700 1522, [facility]Twin [facility], , Drive, [address] [place], dichorionic/diamn [address] Denis 120, [id number], iotic, third 120, [place], [place] [id number] weeks LONNIE [place], tel:+ gestation of [place], [id number]. [address], tel: [place]. [phone] tel: [phone] Yady [place] Twin , Nov-0 Farhad Referring In Womens Ultrasound dichorionic/diamn 2-201 [place]. 700 Provider: David DIEHL, iot, third 7 Medical Isabelle PO Box [id number] weeks [facility], [facility] 1522, gestation of Denis Monae, 120, Center Larry Anderson, Denis 120, [id number], [place], [place] [id number] [place], tel: , [place]. [id number]. tel: tel: [phone] Yady [place] Oct-2 Farhad In Womens 7-201 [place]. 700 Health ND, 7 Medical PO Box Center 1522, Denis Monae, 120, Larry [place], [id number], [place], [place] [id number] tel: , [place]. tel: [phone] Yady [place] Twin , Oct-2 Farhad Referring In Womens dichorionic/diamn 6-201 [place]. 700 Provider: Health FAZAL iotic, third 7 Medical Isabelle PO Box trimesterMaternal [facility], [facility] 1522, care for breech Denis Monae, presentation, 120, Center Dr [place], fetus 133 weeks [place], [facility] 120, [id number], gestation of Larry [place], [id number] [place], tel:+ , [place]. [id number]. tel: tel:[phone] Yady [place] Supervision of Oct-2 Farhad Referring In Womens Ultrasound other high risk 6-201 [place]. 700 Provider: David DIEHL, pregnancies, 7 Medical Isabelle PO Box third Center [facility], [facility] 1522, trimesterTwin Denis Monae, , 120, Center Dr [place], dichorionic/diamn Larry, [facility] 120, [id number], iotic, third Larry [place], [place] [id number] weeks [id number] [place], tel:+[phone] gestation of , [place]. [id number]. tel: tel: [phone] Yady [place] Twin , Oct-0 Farhad Referring In Womens dichorionic/diamn 5-201 [place]. 700 Provider: David DIEHL iotdestiney, third 7 Medical Isabelle PO Box [id number] weeks [facility], [facility] 1522, gestation of Denis Monae, 120, Center Dr [place], Larry, [facility] 120, [id number], [place] [id number] [place], tel: , [place]. [id number]. tel: tel:[phone] Yady [place] Supervision of Sep-2 Farhad Referring In Womens other high risk 0-201 [place]. 700 Provider: David DIEHL, pregnancies, 7 Medical Isabelle PO Box third [id number] Center [facility], [facility] 1522, weeks gestation Denis Monae, of pregnancyType 120, Center Dr [place], O blood, Rh [place], [facility] 120, [id number], negative Larry [place] [id number] [place], tel:+ , [place]. [id number]. tel: tel:[phone] Yady [place] Supervision of Sep-2 Farhad Referring In Womens Ultrasound other high risk 0-201 [place]. 700 Provider: Health PA, pregnancies, 7 Medical Isabelle PO Box third [facility] [place], 700 1522, trimesterTwin , [facility] [place], , 120, Center Dr F[place], dichorionic/murrayn Larry, [facility] 120, [id number], iotic, third [place]ONNIE, Larry, [place] weeks [id number] [place], tel:+ gestation of , [place]. [id number]. tel: tel:+[phone] Yady [place] Twin , Aug-2 Farhad Referring In Womens dichorionic/diamn 5-201 [place]. 700 Provider: Health FAZAL, iot, second 7 Medical Isabelle PO Box [id number] weeks Center [facility], 700 1522, gestation of , [facility] [place], 120, Center Dr [place], Larry, [facility] 120, [id number], [place], [place] [id number] [place], tel: , [place]. [id number]. tel: tel:[phone] Yady [place] Supervision of Shekhar-2 Farhad Referring In Womens other high risk 7-201 [place]. 700 Provider: Health PA, pregnancies, 7 Medical Isabelle PO Box second Center [facility], 700 1522, [id number] weeks , Denis [place], gestation of 120, Center Dr [place], Larry, Denis 120, [id number], [place], [place] [id number] [place], tel: , [place]. [id number]. tel: tel:[phone] Yady [place] Supervision of Shekhar-2 Farhad Referring In Womens Ultrasound other high risk 7-201 [place]. 700 Provider: Health PA, pregnancies, 7 Medical Isabelle PO Box second Center [facility], 700 1522, trimesterTwin Denis Monae, , 120, Center Dr [place], dichorionic/diamn Larry, Denis 120, [id number], iotic, second [place], [place], [place] weeks [id number] [place], tel:+ gestation of , [place]. [id number]. tel: tel:+[phone] Yady [place] Supervision of Jan- Farhad Referring In Womens other high risk 3-201 [place]. 700 Provider: Health PA, pregnancies, 7 Medical Isabelle PO Box first Center [facility], 700 1522, trimesterTmohit Monae, [facility], , 120, Center Dr [place], dichorionic/murrayn Larry, [facility] 120, [id number], iotic, second [place], [place], [place] [id number] weeks [id number] [place], tel:+[phone] gestation of , [place]. [id number]. tel: tel:+[phone] Yady [place] Supervision of December- Farhad Referring In Womens other high risk 1-201 [place]. 700 Provider: Health PA, pregnancies, 7 Medical Isabelle PO Box first Center [facility], 700 1522, trimesterAnton Monae, [facility], , 120, Center Dr F[place], julia/murrayn Larry, [facility] 120, , iotic, first [place]NIE, [place], trimesterEncntr [id number] [place], tel:+2 screen for , [place]. [id number]. [address] infections w sexl tel: tel:+316 mode of [phone] transmissEncounte r for screening for oth infec/parastc diseasesEncounter for screening of [id number] weeks gestation of Yady [place] Secondary December- Farhad Referring In Womens amenorrhea 0-201 [place]. 700 Provider: Health PA, 7 Medical Isabelle PO Box Center [facility], 700 1522, , [facility], 120, Center Larry Anderson, [facility] 120, [id number], [place], [place], [id number] [place], tel:+[phone] , [place]. [id number] tel: tel:[phone] Yady [place] Uterine size-date Farhad Referring In Womens Ultrasound discrepancy, 0- [place]. 700 Provider: David DIEHL, unspecified 7 Medical Isabelle PO Box trimesterTwin [facility], 700 1522, , , [facility] [place], monochorionic/celsa 120, Center Dr F[place], mniotic, first [place], Denis 120, , trimesterTwin [place], [place], [place] , [place], tel: dichorionic/diamn , [place]. [id number]. iotic, first tel: tel: trimester [phone] Yady [place] Secondary Apr-2 Farhad Referring In Womens amenorrheaUterine 0- [place]. 700 Provider: David DIEHL, size-date 7 Medical Isabelle PO Box discrepancy, [facility], 700 1522, unspecified , [facility] Lina, trimester 120, Center Dr F[place], [place], Denis 120, , [place], [place], [place], tel: , [place]. [id number]. tel: tel: [phone] Associates Larry Irregular Menses Apr-0 [place] In Womens Jennifer. David DIEHL, 7 700 PO Box Medical 1522, Center Dr Lina, [facility] LONNIE, 120, , [place], [place], tel: [phone] , [place]. tel: [phone] Yady [place] Encounter for Sep- [place] In Womens test, 3 Jennifer. Health FAZAL, result 7 700 PO Box unknownEncounter Medical 1522, [facility], test, result Dr Denis LONNIE, unknown 120, , [place], [place], tel: [phone] , [place]. 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 Provider: David DIEHL, (routine) w/o abn 6 700 Isabelle PO Box findingsPap Smear [facility], 700 1522, Screening, Cervix [place] [address] [place] [address], [facility] Dr F[place], 120, Denis 120, [id number], Larry [place], [facility], [place], tel: [phone]. , . tel: tel: [phone] Associates Larry December- [place] In Womens 3-201 [facility], 2 700 PO [facility] 1522, [address] Lina, [facility] [place], 120, [id number], [place], [facility], tel: [phone] , . 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 Bryanna Bishop BOOKED Appointment Bryanna Bishop BOOKED Future Order: Radiology Order Complete OB Ultrasound > 14 Ordered Weeks ([id number]) Future Order: Radiology Order Biophysical Profile without NST Ordered ([id number]) Future Order: Radiology Order Ultrasound OB Follow-up ([id number]) Ordered Future Order: Radiology Order Biophysical Profile without NST Ordered ([id number]) Future Order: Radiology Order Ultrasound OB Follow-up ([id number]) Ordered Future Order: Radiology Order Biophysical Profile without NST Ordered ([id number]) Future Order: Radiology Order Biophysical Profile without NST Ordered ([id number]) Future Order: Lab Order Pap Smear With [...]
--- OUTSIDE RECORDS SUMMARY | 2017-07-07 16:21 | External Medical Summary | Continuity of Care Document ---
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 700 Provider: gavi Ahmadi, third 7 Hernan PIERRE Box trimesterMaternal [facility], 700 4528, care for breech , [facility] Medical [place], presentation, 120, Center Dr [place], fetus 133 weeks Denis [place] 120, [id number], gestation of Larry [place] [id number] [place], tel: , [place]. [id number]. [id number] tel: tel:+ [phone] Yady [place] Supervision of Oct-2 Farhad Referring In Womens Ultrasound other high risk 6-201 [place]. 700 Provider: Health FAZAL, pregnancies, 7 Medical Isabelle PO Box third Center [facility], [facility] 1522, trimesterTwin , [facility] Lina, , 120, Center Dr [place], dichorionic/diamn Larry, [facility] 120, [id number], iotic, third Larry [place], [place] [id number] weeks [id number] [place], tel:+ gestation of , [place]. [id number]. tel: tel:+[phone] Yady [place] Twin , Oct-0 Farhad Referring In Womens dichorionic/diamn 5-201 [place]. 700 Provider: David DIEHL iot, third Medical Isabelle PO Box [id number] weeks [facility], [facility] 1522, gestation of , [facility] L[place], 120, Center Larry Anderson, [facility] 120, [id number], Larry [place] [id number] [place], tel: , [place]. [id number] tel: tel:[phone] Yady [place] Supervision of Sep-2 Farhad Referring In Womens other high risk 0-201 [place]. 700 Provider: David DIEHL, pregnancies, 7 Medical Isabelle PO Box third Center [facility], [facility] 1522, weeks gestation , [place], of pregnancyType 120, Center Dr [place], O blood, Rh [place], [facility] 120, [id number], negative Larry [place] [id number] [place], tel: , [place]. [id number] tel: tel:[phone] Yady [place] Supervision of Sep-2 Farhad Referring In Womens Ultrasound other high risk 0-201 [place]. 700 Provider: Health FAZAL, pregnancies, 7 Medical Isabelle PO Box third Center [facility], [facility] 1522, trimesterTmohit Monae, [facility] [place], , 120, Center Dr [place], dichorionic/diamn Larry, Denis 120, [id number], iotic, third Larry [place], [place] [id number] weeks [place]ONNIE, tel:+ gestation of , [place]. [id number]. tel: tel:+[phone] Yady [place] Twin , Aug- Farhad Referring In Womens dichorionic/diamn 5-201 [place]. 700 Provider: Health PA, iotic, second 7 Medical Isabelle PO Box [id number] weeks [facility], 700 1522, gestation of , [facility] [place], 120, Center Dr [place], Larry, [facility] 120, [id number], [place], [place] [id number] [place], tel: , [place]. [id number]. tel: tel:+[phone] [place] Supervision of Feb-2 Farhad Referring In Womens other high risk 7-201 [place]. 700 Provider: Health PA, pregnancies, 7 Medical Isabelle PO Box second [facility], 700 1522, [id number] weeks , [facility] gestation of 120, [address] [place], [place], [facility] 120, , [place], [place] [id number] [place], tel: , [place]. [id number]. tel: tel:[phone] [place] Supervision of Feb-2 Farhad Referring In Womens Ultrasound other high risk 7-201 [place]. 700 Provider: Health PA, pregnancies, 7 Medical Isabelle PO Box second [facility], 700 1522, trimesterTmohit Monae, [facility] [place], , 120, Center Dr [place], dichorionic/diamn Larry, [facility] 120, , iotic, second Larry [place], [id number] weeks LONNIE, tel:+ gestation of , [place]. [id number]. [id number] tel: tel:+[phone] [place] Supervision of Matt-2 Farhad Referring In Womens other high risk 3-201 [place]. 700 Provider: Health PA, pregnancies, 7 Medical Isabelle PO Box first [facility], 700 1522, trimesterTmohit Monae, [facility] [place], , 120, Center Dr [place], dichorionic/diamn Larry, [facility] 120, , iotic, second [place]IE, [place], [place] [id number] weeks LONNIE, tel: gestation of , [place]. [id number]. tel: tel:+[phone] Yady [place] Supervision of Farhad Referring In Womens other high risk 1-201 [place]. 700 Provider: Health PA, pregnancies, 7 Medical Isabelle PO Box [facility], 700 1522, trimesterTwin , [facility], , 120, Center Dr [place], dichorionic/diamn [place], [facility] 120, , iotic, first [place]ONNIE, [place], [place] trimesterEncntr [place]IE, tel: screen for , [place]. [id number]. [address] infections w sexl tel: tel:+[phone] mode of [phone] transmissEncounte r for screening for oth infec/parastc diseasesEncounter for screening of [id number] weeks gestation of Yady [place] Secondary Farhad Referring In Womens amenorrhea 0-201 [place]. 700 Provider: Health FAZAL, 7 Medical Isabelle PO Box [facility], 700 1522, , [facility], 120, Center Larry Anderson, [facility] 120, [id number], [place], [place] [id number] [place], tel: , [place]. [id number] tel: tel:[phone] Yady [place] Uterine size-date Farhad Referring In Womens Ultrasound discrepancy, 0-201 [place]. 700 Provider: Health PA, unspecified 7 Medical Isabelle PO Box trimesterTwin [facility], 700 1522, , Dr, [facility] [place], monochorionic/celsa 120, Center Dr [place], mniotic, first Larry, [facility] 120, [id number], trimesterTwin Larry [place], [place] , [place]IE, tel: dichorionic/diamn , US. [id number]. 196790 iotic, first tel: tel:+[phone] trimester [phone] Yady [place] Secondary Apr-2 Farhad Referring In Womens amenorrheaUterine 0-201 [place]. 700 Provider: Health FAZAL, size-date 7 Medical Isabelle PO Box discrepancy, Center [facility], 700 1522, unspecified Dr, [facility] [place], trimester 120, Center Dr [place], Larry, Denis 120, [id number], [place], [place], [id number] [place], tel: , [place]. [id number]. tel: tel: [phone] Yady [place] Irregular Menses Apr-0 [place] In Womens 4-201 Jennifer. David DIEHL, 7 700 PO Box Medical 1522, [address] Lina, [facility] LONNIE, 120, [id number], [place], [place], tel:[phone] , [place]. tel: [phone] Yady [place] Encounter for Feb-1 [place] In Womens test, 3-201 Jennifer. Health FAZAL, result 7 700 PO Box unknownEncounter Medical 1522, for [facility], test, result , [facility] LONNIE, unknown 120, [id number], [place], [place], tel:[phone] , [place]. 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 Provider: David DIEHL, (routine) w/o abn 6 700 Isabelle PO Box findingsPap Smear [facility], 700 1522, Screening, Cervix [place] [address] [place] [address], [facility] Dr FLEMING, 120, Denis 120, [id number], Larry [place], [place], [place], tel:[phone]. , [place]. tel: tel: [phone] Yady [place] May-1 [place] In Womens 3-201 Jennifer. Health FAZAL, 2 700 PO Box Medical 1522, [address] Lina, [facility] [place], 120, [id number], [place], [place], tel:[phone] , [place]. tel:[phone] Family History Family Member Diagnosis Age At [...] older Payers Payer name Insurance type Covered green party ID Authorization(s) [facility] [id number] [facility] [id number] Social History Type Description Quantity Date Captured Alcohol Use Details No Caffeine Use Details Unknown Tobacco Use Status Unknown Smoking Status Never smoker Vital Signs Date / Height Weight BMI Pulse Blood Temperature Respiratory Body Head BMI Time: Rate Pressure Rate Surface Circumference percentile Area 272.60 45.3 -2017 lbs 6 4:00 kg/m PM eter (2) 272.60 45.3 108/58 -2017 lbs 6 mm[Hg] 4:12 kg/m PM eter (2) Chief Complaint And [...] Complete OB Ultrasound > 14 Ordered Weeks ([id number]) Future Order: Radiology Order Ultrasound OB Follow-up ([id number]) Ordered Future Order: Radiology Order Biophysical Profile without NST Ordered ([id number]) Future Order: Radiology Order Ultrasound OB Follow-up ([id number]) Ordered Future Order: Lab Order Pap Smear [...]
[2017-07-07] MEDS: LR 1,000 ML IV SCH ×3 (16:22→21:19)
--- OUTSIDE RECORDS SUMMARY | 2017-07-07 16:22 | External Medical Summary | Continuity of Care Document ---
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 for registered nurse bone marrow transplant exam (general) - (routine) w/o abn findings Supervision of other high risk - pregnancies, third trimester Twin , - dichorionic/diamniotic, third trimester 33 weeks gestation of - Secondary amenorrhea Uterine [...] for test, result unknown Procedures Procedure Date Ultrasnd preg uterus, flwup/repeat Ultrasnd preg uterus, flwup/repeat biophys prfl w/o nstress test biophys prfl w/o nstress test Results Test Name Date and Time Measure Units Reference Range Abnormal Flag Comments Unknown Advance Directives Directive Yes / No Effective Date File Name Unknown Encounters Encounter Practice Location Reason(s) Diagnoses Date Provider Care Team Description For Visit Members [facility] Twin , Nov-0 Farhad Referring In Womens dichorionic/diamn 8-201 [place]. 700 Provider: gavi Ahmadi, third 7 Medical Isabelle PO Box [id number] weeks Faith [place], 700 1522, gestation of Dr [facility], 120, Center Larry Anderson, Denis 120, [id number], LONN[place], [place], [id number] [place], tel:+ , [place]. [id number]. tel: tel: [phone] [facility] Twin , Nov-0 Farhad Referring In Womens Ultrasound dichorionic/diamn 8-201 [place]. 700 Provider: gavi Ahmadi, third 7 Medical Isabelle PO Box [email or web address] weeks Faith [place], [facility], gestation of Dr [facility], 120, Center Larry Anderson, Denis 120, [id number], LONN[place], [place], [place] [id number] [place], tel: , [place]. [id number]. tel: tel: [phone] Associates Larry Supervision of Nov-0 Sobbing Referring In Womens other high risk 2-201 [place]. Provider: David DIEHL, pregnancies, 7 700 Isabelle PO Box [facility], 700 1522, trimesterTwin [facility], , Drive, [address] [place], dichorionic/diamn [address] Denis 120, [id number], iotdestiney, third 120, [place], [place] [email or web address] weeks LONNIE [place], tel: gestation of LONNIE, [id number]. [id number], tel:+ [place]. [phone] tel: [phone] [facility] Twin , Nov-0 Farhad Referring In Womens Ultrasound dichorionic/diamn 2-201 [place]. 700 Provider: gavi Ahmadi, third 7 Medical Isabelle PO Box [id number] weeks [facility], 700 1522, gestation of Dr [facility], 120, Center Larry Anderson, [facility] 120, [id number], Larry [place], [id number] [place], tel:+ , [place]. [id number]. tel: tel:[phone] Yady [place] Twin , Oct-2 Farhad Referring In Womens dichorionic/diamn 6-201 [place]. 700 Provider: Health FAZAL iotic, third 7 Medical Isabelle PO Box trimesterMaternal [facility], 700 1522, care for breech Dr [facility], presentation, 120, Center Dr F[place], fetus 133 weeks [place], [facility] 120, , gestation of Larry [place], LONNIE, tel:+ , [place]. [id number]. tel: tel:[phone] Yady [place] Supervision of Oct-2 Farhad Referring In Womens Ultrasound other high risk 6-201 [place]. 700 Provider: Health FAZAL, filipe, 7 Medical Isabelle PO Box third [facility], 700 1522, trimesterTwin Dr [facility], , 120, Center Dr [place], dichorionic/diamn Larry, [facility] 120, [id number], iotic, third Larry [place], [id number] weeks [place], tel:+[phone] gestation of , [place]. [id number]. tel: tel:[phone] Yady [place] Twin , Oct-0 Farhad Referring In Womens dichorionic/diamn 5-201 [place]. 700 Provider: Health FAZAL iotic, third 7 Medical Isabelle PO Box weeks [facility], [facility]22, gestation of Denis Monae, 120, Center Larry Anderson, Denis 120, [id number], Larry [place] [id number] [place], tel:+[phone] , [place]. [id number]. tel: tel:[phone] [place] Supervision of Sep-2 Farhad Referring In Womens other high risk 0-201 [place]. 700 Provider: Health PA, pregnancies, 7 Medical Isabelle PO Box third [email or web address] Center [place], 700 1522, weeks gestation Denis Monae, of pregnancyType 120, Center Dr FLEM[place], O blood, Rh [place], Denis 120, [id number], negative LONNIE, [place] [id number] [place], tel:+ , [place]. [id number]. tel: tel:[phone] Yady [place] Supervision of Sep-2 Farhad Referring In Womens Ultrasound other high risk 0-201 [place]. 700 Provider: Health PA, pregnancies, 7 Medical Isabelle PO Box third [facility] [place], 700 1522, trimesterTwin Denis Monae, , 120, Center Dr FLEM[place], dichorionic/diamn [place], [facility] 120, [id number], iotic, third Larry [place], weeks LONNIE, tel: gestation of , [place]. [id number]. [id number] tel: tel:[phone] Yady [place] Twin , Aug-2 Farhad Referring In Womens dichorionic/diamn 5-201 [place]. 700 Provider: David DIEHL, iotic, second 7 Medical Isabelle PO Box [email or web address] weeks Center [facility], 700 1522, gestation of Denis Monae, 120, Center Dr F[place], Larry, [facility] 120, , LONNIE, [place], [place] [id number] L[place], tel: , [place]. [id number]. tel: tel:[phone] Yady [place] Supervision of Shekhar-2 Farhad Referring In Womens other high risk 7-201 [place]. 700 Provider: Health PA, pregnancies, 7 Medical Isabelle PO Box second [facility] [place], 700 1522, [email or web address] weeks Denis Monae, gestation of 120, Center Dr FLEM[place], [place], Denis 120, [id number], LONNIE, [place], [place] [id number] [place], tel:+ , [place]. [id number] tel: tel:[phone] Yady [place] Supervision of Feb-2 Farhad Referring In Womens Ultrasound other high risk 7-201 [place]. 700 Provider: Health PA, pregnancies, 7 Medical Isabelle PO Box second [facility] [place], 700 1522, trimesterTmohit Monae, [facility], , 120, Center Dr [place], dichorionic/diamn Larry, Denis 120, [id number], iotic, second Larry [place], [place] [id number] weeks [id number] [place], tel:+[phone] gestation of , [place]. [id number]. tel: tel:[phone] Yady [place] Supervision of Matt-2 Farhad Referring In Womens other high risk 3-201 [place]. 700 Provider: Health PA, pregnancies, 7 Medical Isabelle PO Box first Center [facility], 700 1522, trimesterAnton [facility]ae, [facility], , 120, Center Dr [place], dichorionic/diamn Larry, [facility] 120, [id number], iotic, second Larry [place], [place] weeks [id number] [place], tel:+[phone] gestation of , [place]. [id number]. tel: tel:[phone] Yady [place] Supervision of December-3 Farhad Referring In Womens other high risk 1-201 [place]. 700 Provider: Health PA, pregnancies, 7 Medical Isabelle PO Box first Center [facility], 700 1522, Faiza Monae, [facility], , 120, Center Dr F[place], dichorionic/diamn Larry, Denis 120, [id number], iotic, first LONNIE [place], [place] trimesterEncntr [id number] [place], tel:+[phone] screen for , [place]. [id number]. infections w sexl tel: tel:+[phone] mode of [phone] transmissEncounte r for screening for oth infec/parastc diseasesEncounter for screening of [id number] weeks gestation of Yady [place] Secondary December- Farhad Referring In Womens amenorrhea 0-201 [place]. 700 Provider: Health PA, 7 Medical Isabelle PO Box Center [facility], 700 1522, , [facility], 120, Center Larry Anderson, Denis 120, [id number], [place], [place], [id number] [place], tel: , [place]. [id number]. tel: tel: [phone] Yady [place] Uterine size-date May-1 Farhad Referring In Womens Ultrasound discrepancy, 0-201 [place]. 700 Provider: David DIEHL, unspecified 7 Medical Isabelle PO Box trimesterTwin [facility], 700 1522, , Dr, [place], monochorionic/celsa 120, Center Dr FLEMING, mniotic, first [place], Denis 120, , trimesterTwin LONNIE, [place], , [place], tel: dichorionic/diamn , [place]. [id number]. iotic, first tel: tel: trimester [phone] Yady [place] Secondary Apr-2 Farhad Referring In Womens amenorrheaUterine 0-201 [place]. 700 Provider: David DIEHL, size-date 7 Medical Isabelle PO Box discrepancy, [facility], 700 1522, unspecified , [facility] [place], trimester 120, Center Dr F[place], Larry, [facility] 120, [id number], [place], [place] [id number] [place], tel: , [place]. [id number]. tel: tel: [phone] Yady [place] Irregular Menses Apr-0 [place] In Womens 4-201 Jennifer. David DIEHL, 7 700 PO Box Medical 1522, Center [place], , Deins [place], 120, [id number], [place], [place], tel: [phone] , [place]. tel: [phone] Yady [place] Encounter for b- [place] In [facility]om[facility] test, 3-201 Jennifer. Health PA, result 7 700 PO Box unknownEncounter Medical 1522, for [facility], test, result Denis Monae, unknown 120, [id number], [place], [place], tel:[phone] , [place]. tel: [phone] Associates [facility] Encntr for registered nurse bone marrow transplant Jean Pierre Referring In Womens exam (general) 8-201 Jennifer. Provider: Health FAZAL, (routine) w/o abn 6 700 Isabelle PO Box findingsPap Smear Medical [place], 700 1522, Screening, Cerv[facility] Lina, Denis Faith Dr [place], 120, Denis 120, [id number], Larry [place], [place], [place], tel: [phone]. , . tel: tel: [phone] Yady [place] December- [place] In Womens 3-201 Jennifer. Health FAZAL, 2 700 PO Box Medical 1522, Center Dr Lina, Denis [place], 120, [id number], [place], [place], tel: [phone] , . tel: [phone] Family History Family Member Diagnosis Age At [...] name Insurance type Covered republican ID Authorization(s) [facility] [id number] [facility] [id number] [facility] [id number] Social History Type Description Quantity Date Captured [...] Appointment Bryanna Bishop BOOKED Appointment Bryanna Bishop [facility] Primary C/S- MB BOOKED Assist Appointment Bryanna Bishop BOOKED Appointment Bryanna Bishop BOOKED Future Order: Radiology Order Biophysical Profile without NST Ordered ([id number]) Future Order: Radiology Order Ultrasound OB Follow-up ([id number]) Ordered Future Order: Radiology Order Complete OB Ultrasound > 14 Ordered Weeks ([id number]) Future Order: Radiology Order Ultrasound OB Follow-up ([id number]) Ordered Future Order: Radiology Order Biophysical Profile without NST Ordered ([id number]) Future Order: Radiology Order Biophysical Profile without NST Ordered ([id number]) Future Order: Lab Order Pap Smear With [...]
--- OUTSIDE RECORDS SUMMARY | 2017-07-07 16:22 | External Medical Summary | Continuity of Care Document ---
:1985 Author Organization [facility] Address [address] [place], [place] [id number] Phone Care Team Providers Name Role Phone [...] (start - stop) Clinical Status Encntr for obstetrics gynecology md exam (general) - (routine) w/o abn findings [...] Farhad Referring In Womens other high risk [place] [address] Provider: Health PA, pregnancies, 7 Medical Isabelle PO Box second Center [facility], [facility], [email or web address] weeks , [facility] Lina, gestation of 120, [address] [place], [place], [facility] 120, , [place], [id number] [place], tel: , [place]. [id number] tel: tel:[phone] Yady [place] Supervision of Farhad Referring In Womens Ultrasound other high risk [place] [address] Provider: Health PA, pregnancies, 7 Medical Isabelle PO Box second Center [facility], [facility]22, trimesterTmohit Monae, [facility] Lina, , 120, [address] [place], dichorionic/murrayn Larry, [facility] 120, , iotic, second Larry [place], [place] [id number] weeks LONNIE, tel: gestation of , [place]. [id number]. tel: tel:[phone] Yady [place] Supervision of Farhad Referring In Womens other high risk [place] [address] Provider: Health PA, pregnancies, 7 Medical Isabelle PO Box first Center [facility], 700 1522, trimesterTmohit Monae, [facility] Lina, , 120, Center Dr FLE[place], dichorionic/diamn Larry, [facility] 120, [id number], iotic, second Larry [place], [place] [id number] weeks [id number] LONNIE, tel:[phone] gestation of , [place]. [id number]. tel: tel:[phone] Yady [place] Supervision of December-3 Farhad Referring In Womens other high risk 1-201 [place]. 700 Provider: Health PA, pregnancies, 7 Medical Isabelle PO Box [facility] Center [facility], 700 1522, trimesterTwin , [facility] Lina, , 120, Center Dr FLEM[place], dichorionic/diamn Larry, [facility] 120, , iotic, first LONNIE, [place], trimesterEncntr [place], tel: screen for , [place]. [id number]. [address] infections w sexl tel: tel:316 mode of [phone] transmissEncounte r for screening for oth infec/parastc diseasesEncounter for screening of [id number] weeks gestation of Associates Larry Secondary December- Farhad Referring In Womens amenorrhea 0-201 [place]. 700 Provider: David DIEHL, 7 Medical Isabelle PO Box [facility], 700 1522, , [facility] Lina, 120, Center Dr FLEM[place], Larry, [facility] 120, , [place], [place], [id number] [place], tel: , [place]. [id number]. tel: tel:[phone] Yady [place] Uterine size-date December- Farhad Referring In Womens Ultrasound discrepancy, 0-201 [place]. 700 Provider: Health FAZAL, unspecified 7 Medical Isabelle PO Box trimesterTwin [facility], 700 1522, , Dr, [facility] Lina, monochorionic/celsa 120, Center Dr FLEMING, mniotic, first [place], [facility] 120, [id number], trimesterTwin Larry FLEMING, , LONNIE, tel: dichorionic/diamn , [place]. [id number]. [address] iotic, first tel: tel:[phone] trimester [phone] Yady [place] Secondary Apr-2 Farhad Referring In Womens amenorrheaUterine 0-201 [place]. 700 Provider: Health FAZAL, size-date 7 Medical Isabelle PO Box discrepancy, Center [facility], 700 1522, unspecified , [facility] Lina, trimester 120, Center Dr FLEMING, Larry, Denis 120, , Larry [place], [id number] [place], tel: , [place]. [id number]. tel: tel: [phone] [facility] Irregular Menses Apr-0 [place] In Womens 4- Jennifer. Health FAZAL, 7 700 PO Box Medical 1522, [address] Lina, Denis [place], 120, [id number], [place], [place], tel: [phone] , [place]. tel: [phone] Associates Larry Encounter for Sep- [place] In Womens test, - Jennifer. Health FAZAL, result 7 700 PO Box unknownEncounter [facility] 1522, for [place], test, result , [facility] LONNIE, unknown 120, , [place], [place], tel:[phone] , [place]. tel: [phone] Yady [place] Encntr for obstetrics gynecology md Matt-0 [place] Referring In Womens exam (general) Jennifer. Provider: David DIEHL, (routine) w/o abn 6 700 Isabelle PO Box findingsPap Smear [facility], 700 1522, Screening, Cervix [facility] [address] Lina, [facility] Dr FLEMING, 120, Denis 120, [id number], Larry [place], [place], [place], tel: [phone]. , [place]. tel: tel: [phone] Yady [place] December- [place] In Womens 3-201 Jennifer. Health FAZAL, 2 700 PO Box Medical 1522, [address] Lina, [facility] LONNIE, 120, [id number], [place], [place], tel:[phone] , [place]. tel: [phone] Family History Family Member Diagnosis Age At Onset Paternal Grandfather Diabetes mellitus Maternal Grandfather Hypertension Maternal Grandmother Cardiovascular Disease Paternal Grandmother Cardiovascular Disease Paternal Grandmother Cancer, colon 91 Paternal Grandfather Stroke Mother Cancer, breast 45 Maternal Grandmother Osteoporosis Paternal Grandmother Diabetes mellitus Maternal Grandmother Diabetes mellitus Immunizations Vaccine Date Status Comments Unknown Payers Payer name Insurance type Covered green party ID Authorization(s) [employer] [place] [employer] [id number] Social History Type Description Quantity Date Captured Alcohol Use Details No Caffeine Use Details Unknown Tobacco Use Status Unknown Smoking Status Never smoker Vital Signs Date / Height Weight BMI Pulse Blood Temperature Respiratory Body Head BMI Time: Rate Pressure Rate Surface Circumference percentile Area 249.20 41.4 -2017 lbs 7 4:27 kg/m PM eter (2) 249.20 41.4 126/74 -2017 lbs 7 mm[Hg] 4:28 kg/m PM eter (2) Chief Complaint And Reason For Visit Unknown Chief Complaint And Reason For Visit Reason For Referral Reason For Referral Unknown Plan Of Care Date Type Action Status Goal Lifestyle education regarding completed diet Appointment Bryanna Bishop BOOKED Future Order: Radiology Order Complete OB Ultrasound > 14 Ordered Weeks ([id number]) Future Order: Lab Order Pap Smear With [...]
--- OUTSIDE RECORDS SUMMARY | 2017-07-07 16:22 | External Medical Summary | Continuity of Care Document ---
:1985 Author Organization [facility] Allergies Active Description Code Type Severity Reaction Onset Reported/ Identified Relationship Clinical to Patient Status Yes No Known 79801 3 N/A N/A Drug 0 Allergies Medications Medication Packaging Start Date Stop Date Route Dosage Sig Tablet 01/22/2016 09/16/2016 AVIANE take 1 tablet by oral route every day Tablet 12/17/2016 12/22/2016 DICLEGIS take 1 tablet by oral route every day in the morning, 1 tablet in the mid-afternoo n, and 2 tablets at bedtime as needed for nausea Syringe 05/05/2017 RHOPHYLAC Problems Date Dx Coded Attending Type Code Diagnosis Diagnosed By 12/23/2016 Neno Llamas O26.849 Uterine size-date discrepancy, unspecified trimester 03/12/2017 Neno Llamas O09.892 Supervision of other high risk pregnancies, second trimester 03/12/2017 Neno Llamas O30.042 Twin , dichorionic/diamni otic, second trimester 03/12/2017 Neno Llamas3A.20 20 weeks gestation of 05/05/2017 Neno Llamas O09.893 Supervision of other high risk pregnancies, third trimester 05/05/2017 Neno Llamas O30.043 Twin , dichorionic/diamni otic, third trimester 05/05/2017 Neno Llamas Z3A.28 28 weeks gestation of 05/06/2017 Neno Llamas O09.893 Supervision of other high risk pregnancies, third trimester 05/06/2017 Neno Llamas Z67.41 Type O blood, Rh negative 06/10/2017 Neno Llamas O09.893 Supervision of other high risk pregnancies, third trimester 06/10/2017 Neno Llamas O30.043 Twin , dichorionic/diamni otic, third trimester 06/10/2017 Neno Llamas Z3A.33 33 weeks gestation of 06/17/2017 Neno Llamas O30.043 Twin , dichorionic/diamni otic, third trimester 06/17/2017 Neno Llamas Z3A.34 34 weeks gestation of 06/23/2017 Neno Llmaas O30.043 Twin , dichorionic/diamni otic, third trimester 06/23/2017 Neno Llamas Z3A.35 35 weeks gestation of 07/01/2017 Neno Llamas O09.893 Supervision of other high risk pregnancies, third trimester 07/01/2017 Neno Llamas O30.043 Twin , dichorionic/diamni otic, third trimester 07/01/2017 Neno Llamas Z3A.36 36 weeks gestation of 07/07/2017 W O30.043 Twin , dichorionic/diamni otic, third trimester 07/07/2017 W Z3A.37 37 weeks gestation of Procedures Code Description Performed By Performed On OB US 12/23/2016 14323 < 14 WKS, SINGLE FETUS OB US 12/23/2016 33835 < 14 WKS, ADD'L FETUS 03/11/2017 06399 Ultrasnd exam of preg uterus, compl 03/11/2017 55348 Ultrasnd,preg shoshone-bannock compl aft 1st tri 05/05/2017 45479 Ultrasnd preg uterus, flwup/repeat 05/05/2017 44896 Venpnctr fngr/heel/ear stick routne 05/05/2017 03056 Glucose test 05/05/2017 14562 Hematocrit blood count 05/05/2017 19072 Hemoglobin count, colorimetric RBC 05/05/2017 45169 antibody screen, each 05/05/2017 29746 Injection Administration 05/05/2017 J2791 Rhophylac 100 IU 06/10/2017 51231 Ultrasnd preg uterus, flwup/repeat 06/17/2017 96434 biophys prfl w/o nstress test 06/17/2017 93967 Immuniz admnin, 1 vac, sngl/combo TDAP 06/17/2017 98723 VACCINE >7 IM 06/23/2017 95806 biophys prfl w/o nstress test 07/01/2017 45838 biophys prfl w/o nstress test 07/07/2017 31951 Ultrasnd preg uterus, flwup/repeat 07/07/2017 71405 biophys prfl w/o nstress test Results Encounters ACCT No. Visit Discharge Status Pt. Type Provider Facility Loc./Unit Complaint Date/Time [id number] 07/01/2017 07/01/2017 CLS Outpatient Farhad, 16:10:00 23:59:59 Neno Lee [id number] 07/01/2017 07/01/2017 CLS Outpatient Farhad, 15:15:00 23:59:59 Neno Lee [id number] 06/30/2017 06/30/2017 CLS Outpatient Farhda, 10:02:00 23:59:59 Neno Lee [id number] 06/23/2017 06/23/2017 CLS Outpatient Farhad, 15:00:00 23:59:59 Neno Lee [id number] 06/23/2017 06/23/2017 CLS Outpatient Farhad, 14:15:00 23:59:59 Neno Lee [id number] 06/21/2017 06/21/2017 CLS Outpatient Farhad, 15:31:00 23:59:59 Neno Lee [id number] 06/17/2017 06/17/2017 CLS Outpatient Sob[place], 15:45:00 23:59:59 Dean Carmona [id number] 06/17/2017 06/17/2017 CLS Outpatient Farhad, 15:15:00 23:59:59 Neno Lee [id number] 06/17/2017 06/17/2017 CLS Outpatient Farhad, 15:15:00 23:59:59 Neno Lee [id number] 06/11/2017 06/11/2017 CLS Outpatient Farhad, 09:55:00 23:59:59 Neno Lee [id number] 06/10/2017 06/10/2017 CLS Outpatient Farhad, 15:45:00 23:59:59 Neno Lee [id number] 06/10/2017 06/10/2017 CLS Outpatient Farhad, 14:45:00 23:59:59 Neno Lee [id number] 06/09/2017 06/09/2017 CLS Outpatient Farhad, 10:13:00 23:59:59 Neno Lee [id number] 05/20/2017 05/20/2017 CLS Outpatient Farhad, 16:00:00 23:59:59 Neno Lee [id number] 05/05/2017 05/05/2017 CLS Outpatient Farhad, 16:30:00 23:59:59 Neno Lee [id number] 05/05/2017 05/05/2017 CLS Outpatient Farhad, 15:15:00 23:59:59 Neno R [id number] 04/09/2017 04/09/2017 CLS Outpatient Farhad, 13:45:00 23:59:59 Neno Lee [id number] 03/11/2017 03/11/2017 CLS Outpatient Farhad, 16:00:00 23:59:59 Neno Lee [id number] 03/11/2017 03/11/2017 CLS Outpatient Farhad, 15:15:00 23:59:59 Neno Lee [id number] 03/10/2017 03/10/2017 CLS Outpatient Farhad, 17:16:00 23:59:59 Neno Lee [id number] 02/09/2017 02/09/2017 CLS Outpatient Farhad, 09:29:00 23:59:59 Neno Lee [id number] 02/05/2017 02/05/2017 CLS Outpatient Farhad, 13:45:00 23:59:59 Neno Lee [id number] 01/13/2017 01/13/2017 CLS Outpatient Farhad, 15:45:00 23:59:59 Neno Lee [id number] 12/23/2016 12/23/2016 CLS Outpatient Farhad, 15:00:00 23:59:59 Neno Lee [id number] 12/23/2016 12/23/2016 CLS Outpatient Farhad, 14:15:00 23:59:59 Neno Lee [id number] 12/17/2016 12/17/2016 CLS Outpatient [place], 14:26:00 23:59:59 Jennifer Taylor [id number] 12/03/2016 12/03/2016 CLS Outpatient Farhad, 16:15:00 23:59:59 Neno Lee [id number] 11/17/2016 11/17/2016 CLS Outpatient [place], 08:43:00 23:59:59 Jennifer Taylor [id number] 10/19/2016 10/19/2016 CLS Outpatient [place], 10:53:00 23:59:59 Jennifer Taylor [id number] 10/12/2016 10/12/2016 CLS Outpatient [place], 14:43:00 23:59:59 Jennifer Taylor [id number] 09/28/2016 09/28/2016 CLS Outpatient [place], 09:32:00 23:59:59 Jennifer Taylor [id number] 01/22/2016 01/22/2016 CLS Outpatient Jean Pierre, 14:30:00 23:59:59 Jennifer Taylor [id number] 07/07/2017 Document 15:15:00 Registration
--- OUTSIDE RECORDS SUMMARY | 2017-07-07 16:22 | External Medical Summary | Continuity of Care Document ---
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) - (routine) w/o abn findings Supervision of other high risk - pregnancies, third trimester Twin , - dichorionic/diamniotic, third trimester 28 weeks gestation of - Secondary amenorrhea Uterine size-date discrepancy, unspecified trimester Supervision of other high risk - pregnancies, third trimester Type O blood, Rh negative - 28 weeks gestation of - Secondary amenorrhea Irregular [...] preg uterus, flwup/repeat Ultrasnd preg uterus, flwup/repeat Results Test Name Date and Time Measure Units Reference Range Abnormal Flag Comments Unknown Advance Directives Directive Yes / No Effective Date File Name Unknown Encounters Encounter Practice Location Reason(s) Diagnoses Date Provider Care Team Description For Visit Members Yady [place] Twin , Farhad Referring In Womens dichorionic/diamn 5-201 [place]. 700 Provider: David DIEHL, iotic, third 7 Medical Isabelle PO Box [id number] weeks [facility], 700 1522, gestation of Denis Monae, 120, [address] [place], [place], Denis 120, [id number], Larry [place], [id number] [place], tel:[phone] , [place]. [id number]. [id number] tel: tel: [phone] Yady Juarez Supervision of Farhad Referring In Womens other high risk 0-201 [place]. 700 Provider: Health PA, pregnancies, 7 Medical Isabelle PO Box third [place], 700 1522, trimesterType O Denis Monae, blood, Rh 120, [address] [place], [id number] weeks [place], Denis 120, [id number], gestation of LONNIE, [place] [id number] [place], tel: , [place]. [id number]. tel: tel:[phone] Yady Ju[place] Supervision of Sep-2 Farhad Referring In Womens Ultrasound other high risk 0-201 [place]. 700 Provider: Health PA, pregnancies, 7 Medical Isabelle PO Box third [facility] [place], 700 1522, trimesterTwin , [facility] Lina, , 120, [address] [place], dichorionic/diamn [place], Denis 120, [id number], iotic, third LONNIE, [place], [place] [id number] weeks [id number] LONNIE, tel:+ gestation of , [place]. [id number]. tel: tel:+[phone] Yady [place] Twin , Aug-2 Farhad Referring In Womens dichorionic/diamn 5-201 [place]. 700 Provider: Health FAZAL, iotdestiney, second 7 Medical Isabelle PO Box [email or web address] weeks [facility], 700 1522, gestation of , [facility] Lina, 120, [address] [place], Larry, Denis 120, [id number], LONINE, [place] [id number] [place], tel:+ , [place]. [id number]. tel: tel:[phone] Yady [place] Supervision of Shekhar-2 Farhad Referring In Womens other high risk 7-201 [place]. 700 Provider: Health PA, pregnancies, 7 Medical Isabelle PO Box second [facility], 700 1522, [id number] weeks Dr [place], gestation of 120, [address] [place], [place], Denis 120, [id number], LONNIE, [place], [place] [id number] [place]NIE, tel: , [place]. [id number]. tel: tel:[phone] Yady [place] Supervision of Shekhar-2 Farhad Referring In Womens Ultrasound other high risk 7-201 [place]. 700 Provider: Health PA, pregnancies, 7 Medical Isabelle PO Box second [facility] [place], 700 1522, trimesterTwin Dr [facility], , 120, [address] [place], dichorionic/diamn Larry, Rust 120, [id number], iotic, second LONNIE, [place], [id number] weeks [id number] [place], tel:+[phone] gestation of , [place]. [id number]. tel: tel:[phone] Yady [place] Supervision of Jan- Farhad Referring In Womens other high risk 3-201 [place]. 700 Provider: Health PA, pregnancies, 7 Medical Isabelle PO Box first [facility], [facility] 1522, trimesterTmohit Monae, [facility], , 120, [address] [place], durgaonic/murrayn Larry, Rust 120, [id number], iotic, second LONNIE, [place], [id number] weeks [id number] [place], tel:+2 gestation of , [place]. [id number]. tel: tel:[phone] Yady [place] Supervision of December- Farhad Referring In Womens other high risk 1-201 [facility] 700 Provider: Health PA, pregnancies, 7 Medical Isabelle PO Box first [facility], [facility] 1522, Faiza Monae, [facility], , 120, [address] [place], julia/murrayn Larry, Rust 120, [id number], iotic, first LONNIE, [place], trimesterEncntr [id number] [place], tel:+2 screen for , [place]. [id number] infections w sexl tel: tel:316 mode of [phone] transmissEncounte r for screening for oth infec/parastc diseasesEncounter for screening of [id number] weeks gestation of Yady [place] Secondary December- Farhad Referring In Womens amenorrhea 0-201 [facility] 700 Provider: Health PA, 7 Medical Isabelle PO Box Center [facility], 700 1522, , [facility], 120, [address] [place], Larry, Rust 120, [id number], Larry [place], [id number] LONNIE, tel:+[phone] , [place]. [id number] tel: tel: [phone] Yady [place] Uterine size-date December- Farhad Referring In Womens Ultrasound discrepancy, 0-201 Neno. 700 Provider: David DIEHL, unspecified 7 Medical Isabelle PO Box trimesterTwin [facility], 700 1522, , , [place], monochorionic/celsa 120, [address] [place], mniotic, first [place], Denis 120, [id number], trimesterTwin LONNIE, [place], , [place], tel: dichorionic/diamn , [place]. [id number]. iotic, first tel: tel: trimester [phone] Yady [place] Secondary Apr-2 Farhad Referring In Womens amenorrheaUterine 0- [place]. 700 Provider: David DIEHL, size-date 7 Medical Isabelle PO Box discrepancy, [facility], 700 1522, unspecified Denis Monae, trimester 120, [address] [place], [place], Denis 120, , [place], [place], [id number] [place], tel: , [place]. [id number]. tel: tel: [phone] Yady [place] Irregular Menses Apr-0 [place] In [facility] 4- [facility]. David DIEHL, 7 700 PO Box Medical 1522, [place], Denis Monae, 120, [id number], [place], [place], tel:[phone] , [place]. tel: [phone] Yady [place] Encounter for Feb-1 [place] [facility] test, 3- Jennifer. David DIEHL, result 7 700 PO Box unknownEncounter [facility] 1522, for [facility], test, result Denis Monae, unknown 120, [id number], [place], [place], tel:[phone] , [place]. 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 Provider: David DIEHL, (routine) w/o abn 6 700 Isabelle PO Box findingsPap Smear [facility], 700 1522, Screening, [facility] Lina, [facility] [place], 120, Denis 120, [id number], Larry [place], [place], [place], tel: [phone]. , [place]. tel: tel: [phone] Associates Larry December- [facility] 3-201 [facility], 2 700 PO Box Medical 1522, Center Dr Lina, Denis [place], 120, [id number], [place], [place], tel: [phone] , [place]. tel: [phone] Family History Family Member Diagnosis Age At [...] name Insurance type Covered republican ID Authorization(s) [facility] [id number] [facility] [id number] Social History Type Description Quantity Date Captured [...] Bryanna Bishop BOOKED Future Order: Radiology Order Ultrasound OB Follow-up ([id number]) Ordered Future Order: Radiology Order Complete OB Ultrasound > 14 Ordered Weeks ([id number]) Future Order: Lab Order Pap Smear With [...]
--- OUTSIDE RECORDS SUMMARY | 2017-07-07 16:22 | External Medical Summary | Continuity of Care Document ---
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 700 Provider: gavi Ahmadi, third 7 Medical Isabelle PO Box [id number] weeks [facility], 700 1522, gestation of Denis Monae, 120, Center [place], Denis 120, [id number], Larry [place] [id number] [place], tel:+ , [place]. [id number]. tel: tel:+ [phone] Associates Larry Twin , Nov-0 Farhad Referring In Womens Ultrasound dichorionic/diamn 8-201 [place]. 700 Provider: gavi Ahmadi, third 7 Medical Isabelle PO Box [id number] weeks [facility], 700 1522, gestation of Denis Monae, 120, Center Larry [place], Denis 120, , Larry [place] [id number] [place], tel:+ , [place]. [id number]. tel: tel:+ [phone] Yady [place] Supervision of Nov-0 [place] Referring In Womens other high risk 2-201 [place]. Provider: David DIEHL, filipe, 7 700 Isabelle PO Box [facility], 700 1522, trimesterTwin [place], , Drive, [address] [place], dichorionic/diamn [address] Denis 120, [id number], iotdestiney, third 120, [place], [place] weeks LONNEI [place], tel:+ gestation of LONNIE, [id number]. [id number], tel:+ [place]. [phone] tel: [phone] Yady [place] Twin , Nov-0 Farhad Referring In Womens Ultrasound dichorionic/diamn 2-201 [place]. 700 Provider: gavi Ahmadi, third 7 Medical Isabelle PO Box [id number] weeks [facility], 700 1522, gestation of Denis Monae, 120, Center [place], Denis 120, [id number], Larry [place], [place] [id number] LONNIE, tel:+ , [place]. [id number]. tel: tel:[phone] Associates Larry Twin , Oct-2 Farhad Referring In Womens dichorionic/diamn 6-201 [place]. 700 Provider: David DIEHL iotic, third 7 Medical Isabelle PO Box trimesterMaternal Center [facility], 700 1522, care for breech , [place], presentation, 120, [address] Dr [place], fetus 133 weeks [place], [facility] 120, [id number], gestation of Larry [place], [place] [id number] [place], tel:+ , [place]. [id number]. tel: tel:[phone] Yady [place] Supervision of Oct-2 Farhad Referring In Womens Ultrasound other high risk 6-201 [place]. 700 Provider: David DIEHL, pregnancies, 7 Medical Isabelle PO Box third [facility], 700 1522, trimesterTwin , [place], , 120, [address] Dr [place], dichorionic/diamn [place], [facility] 120, [id number], iotic, third Larry [place], [place] [id number] weeks [id number] [place], tel:+ gestation of , [place]. [id number]. tel: tel:[phone] Yady [place] Twin , Oct-0 Farhad Referring In Womens dichorionic/diamn 5-201 [place]. 700 Provider: gavi Ahmadi, third 7 Medical Isabelle PO Box [email or web address] weeks [facility], [facility] 1522, gestation of Denis Monae, 120, Center Larry [place], Denis 120, [id number], LONNIE [place], [place] [id number] [place], tel: , [place]. [id number]. tel: tel:[phone] Associates Larry Supervision of Sep-2 Farhad Referring In Womens other high risk 0-201 [place]. 700 Provider: David DIEHL, pregnancies, 7 Medical Isabelle PO Box third [id number] [facility], 700 1522, weeks gestation Denis Monae, of pregnancyType 120, Center Dr [place], O blood, Rh [place], Denis 120, [id number], negative LONNIE, [place], [place] [id number] [place], tel: , [place]. [id number]. tel: tel:[phone] Yady [place] Supervision of Sep-2 Farhad Referring In Womens Ultrasound other high risk 0-201 [place]. 700 Provider: Health PA, pregnancies, 7 Medical Isabelle PO Box third [facility] [place], 700 1522, trimesterTwin , [facility], , 120, [address] Dr [place], dichorionic/diamn [place], Denis 120, [id number], iotic, third Larry [place], [place] [id number] weeks LONNIE, tel: gestation of , [place]. [id number]. tel: tel:+[phone] Yady [place] Twin , Aug-2 Farhad Referring In Womens dichorionic/diamn 5-201 [place]. 700 Provider: Health FAZAL, iotdestiney, second 7 Medical Isabelle PO Box [id number] [facility], 700 1522, gestation of Dr, [facility], 120, [address] Dr [place], Larry, [facility] 120, [id number], Larry [place] [id number] [place], tel:+ , [place]. [id number]. tel: tel:+[phone] Yady [place] Supervision of Shekhar-2 Farhad Referring In Womens other high risk 7-201 [place]. 700 Provider: Health PA, pregnancies, 7 Medical Isabelle PO Box second [facility] [place], 700 1522, [id number] [facility], gestation of 120, Center Dr [place], Larry, Denis 120, [id number], LONNIE, [place], [place] [id number] LONNIE, tel: , US. [id number]. tel: tel:+[phone] Yady Juarez Supervision of Shekhar-2 Farhad Referring In Womens Ultrasound other high risk 7-201 [place]. 700 Provider: Health PA, pregnancies, 7 Medical Isabelle PO Box second [facility] [place], 700 1522, trimesterTwin , [facility], , 120, [address] Dr [place], dichorionic/diamn Larry, [facility] 120, [id number], iotic, second LONNIE, [place], [id number] weeks [id number] [place], tel:+3162 gestation of , [place]. [id number]. tel: tel:+[phone] Yady Juarze Supervision of Jan- Farhad Referring In Womens other high risk 3-201 [place]. 700 Provider: Health PA, pregnancies, 7 Medical Isabelle PO Box first Center [facility], 700 1522, trimesterAnton Monae, [facility], , 120, [address] [place], jessicaorionic/murrayn Larry, [facility] 120, [id number], iotic, second LONNIE, [place], [id number] weeks [id number] [place], tel:+3162 gestation of , [place]. [id number]. tel: tel:+[phone] Yady Ju[place] Supervision of December- Farhad Referring In Womens other high risk 1-201 [facility] 700 Provider: Health PA, pregnancies, 7 Medical Isabelle PO Box first Center [facility], 700 1522, Faiza Monae, [facility], , 120, [address] [place], julia/murrayn Larry, [facility] 120, [id number], iotic, first LONNIE, [place], trimesterEncntr [id number] [place], tel:+2 screen for , [place]. [id number] infections w sexl tel: tel:+316 mode of [phone] transmissEncounte r for screening for oth infec/parastc diseasesEncounter for screening of [id number] weeks gestation of Yady Juarez Secondary December- Farhad Referring In Womens amenorrhea 0-201 [facility] 700 Provider: Health PA, 7 Medical Isabelle PO Box [facility], 700 1522, , [facility], 120, [address] [place], Larry, Denis 120, [id number], Larry [place], [id number] LONNIE, tel:+[phone] , [place]. [id number] tel: tel: [phone] Yady Juarez Uterine size-date December- Farhad Referring In Womens Ultrasound discrepancy, 0-201 [place]. 700 Provider: David DIEHL, unspecified 7 Medical Isabelle PO Box trimesterTwin [facility], 700 1522, , , [place], monochorionic/celsa 120, [address] [place], mniotic, first [place], Denis 120, [id number], trimesterTwin LONNIE, [place], , [id number] [place], tel: dichorionic/diamn , [place]. [id number]. iotic, first tel: tel: trimester [phone] Yady [place] Secondary Apr-2 Farhad Referring In Womens amenorrheaUterine 0- [place]. 700 Provider: David DIEHL, size-date 7 Medical Isabelle PO Box discrepancy, [facility], 700 1522, unspecified , [facility], trimester 120, [address] Dr [place], [place], Denis 120, , [place], [place], [id number] [place], tel: , [place]. [id number]. tel: tel: [phone] Yady [place] Irregular Menses Apr-0 [place] [facility] 4-201 Jennifer. David DIEHL, 7 700 PO Box Medical 1522, [place], Denis Monae, 120, [id number], [place], [place], tel:[phone] , [place]. tel: [phone] Yady [place] Encounter for Feb-1 [place] In [facility] test, 3-201 Jennifer. Health FAZAL, result 7 700 PO Box unknownEncounter [facility] 1522, [facility], result Denis Monae, unknown 120, [id number], [place], [place], tel:[phone] , [place]. 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 Provider: David DIEHL, (routine) w/o abn 6 700 Isabelle PO Box findingsPap Smear [facility], 700 1522, Screening, Cervix Center [facility] Dr Lina, Denis [address] [place], 120, Denis 120, [id number], [place], [place], [place], tel: [phone]. , . tel: tel: [phone] Associates Larry December- [facility] 3-201 [facility], 2 700 PO Box Medical 1522, Center Dr Lina, Denis [place], 120, [id number], [place], [place], tel: [phone] , [place]. tel: [phone] Family History Family Member Diagnosis Age At [...] older Payers Payer name Insurance type Covered constitution party ID Authorization(s) [facility] [id number] [facility] [id number] [facility] [id number] Social History Type Description Quantity Date Captured Alcohol Use Details No Caffeine Use Details Unknown Tobacco Use Status Unknown Smoking Status Never smoker Vital Signs Date / Height Weight BMI Pulse Blood Temperature Respiratory Body Head BMI Time: Rate Pressure Rate Surface Circumference percentile Area 275.90 45.9 / lbs 1 mm[Hg] 3:51 kg/m PM eter (2) Chief Complaint And Reason For Visit Unknown Chief Complaint And Reason For Visit Reason For Referral Reason For Referral Unknown Plan Of Care Date Type Action Status Goal Lifestyle education regarding completed diet Appointment Bryanna Bishop BOOKED Appointment Bryanna Bishop BOOKED Appointment Bryanna Bishop BOOKED Appointment Bryanna Bishop [facility] Primary C/S- MB BOOKED Assist Appointment Bryanna Bishop BOOKED Appointment Bryanna Bishop BOOKED Future Order: Radiology Order Complete OB Ultrasound > 14 Ordered Weeks ([id number]) Future Order: Radiology Order Ultrasound OB Follow-up ([id number]) Ordered Future Order: Radiology Order Biophysical Profile without NST Ordered ([id number]) Future Order: Radiology Order Ultrasound OB Follow-up ([id number]) Ordered Future Order: Radiology Order Biophysical Profile without NST Ordered ([id number]) Future Order: Radiology Order Biophysical Profile without NST Ordered ([id number]) Future Order: Lab Order Pap Smear With [...]
--- NOTE | 2017-07-07 16:25 | Anesthesia Preoperative Report ---
Anesthesia Epidural/Spinal Rec - Date and Time Date: 07/07/17 Preoperative Diagnosis: abnormal sonogram/twins Procedure: Plan: Spinal - Vital Signs NPO since: patient had full lunch around noon. Full somach precautions. /Para: P:0 - Medictaions & Allergies Inpatient Medications: Current Medications Citric Acid/Sodium Citrate (Oracit) 30 ml PO PREOP ONE Stop: 07/07/17 16:20 Famotidine/Sodium Chloride (Pepcid Premix) 20 mg in 50 mls @ 100 mls/hr IV PREOP ONE Stop: 07/07/17 16:48 Allergies/Adverse Reactions: Allergies Allergy/AdvReac Type Severity Reaction Status Date / Time No Known Allergies Allergy Verified 06/23/17 16:18 - Home Medications Home Medications: Home Medications Medication Instructions Recorded Confirmed Type Folic Acid DAILY 06/23/17 History Vitamins DAILY 06/23/17 History - Medical History Respiratory: DENIES: Asthma, Bronchitis, Chronic Obstructive Pulmonary Disease (COPD), Dyspnea, Orthopnea, Pulmonary Embolism, Pneumonia, Upper Respiratory Infection, Pulmonary Edema, Sleep Apnea, Tuberculosis, Other Cardiovascular: DENIES: Abnormal EKG, Angina, Arrhythmia, Congestive Heart Failure, Coronary Artery Disease, Heart Murmur, Hypertension, Hypotension, High Cholesterol, Myocardial Infarction, Rheumatic Fever, Valvular Heart Disease, Other Gastrointestional: DENIES: Obstructive Bowel, Hepatitis, Cirrhosis, Nausea or Vomiting Present, Gastroesophageal Reflux Disease, Gastrointestinal Bleeding, Hiatal Hernia, Ulcer , Morbid Obesity, Other Neuro/Musculoskeletal: Denies: HX.MS.OSAR, Back Problems, Cerebrovascular Accident, Depression, Headaches, Loss of Consciousness, Muscle Weakness, Neuromuscular Disorder, Paralysis, Paresthesia, Syncope, Seizures, Other Renal/Endocrine: DENIES: Diabetes Mellitus Type 1, Diabetes Mellitus Type 2, Renal Failure, Dialysis, Thyroid Disease, Weight Loss, Weight Gain, Other Other History: Reports: Now DENIES: Anesthesia Reactions, Blood Transfusions, Chemotherapy, Cancer, Hemophilia, Malignant Hyperthermia, Sickle Cell Disease, Other - Surgical History Anesthesia Reactions: None Hx Family Anesthesia Reaction: No History of Motion Sickness: No - Social History Smoking Status: Never smoker Second Hand Exposure: No Substance Use Type: does not use Alcohol Intake: never Alcohol Intake Frequency: does not drink Hx Chewing Tobacco Use: No - Physical Exam Respiratory Exam: lungs clear, bilateral breath sounds equal Cardiovascular Exam: regular rate and rhythm, no murmur - Airway Assessment Mallampati Score: II TMD: 3 Fingerbreadths Neck Extension: good Overall Assessment: may be difficult mask vent, may be difficult intubation - ASA ASA Score: 3, E - Discussion Discussion: Discussed risks/options/alternatives of anesthesia and questions answered. Patient consents. Nursing pain assessment noted. Attestation Statement: Prior to the delivery of any anesthetic medication, I examined the patient, developed the plan, obtained the patient's consent and discussed the risk and benefits of the procedure with the patient/guardian.
[2017-07-07 16:26] VITALS: BMI 47.9
[2017-07-07] MEDS ORDERED: METOCLOPRAMIDE 10mg/2ml INJECTION IVP ONE (16:30)
[2017-07-07] MEDS ORDERED: MORPHINE SULFATE PF 5mg/10ml INJ (Duramorph) EPI ONE (16:44)
[2017-07-07] MEDS ORDERED: EPHEDRINE 50mg/ml INJECTION IM ONE (16:44)
[2017-07-07] MEDS ORDERED: ONDANSETRON 4 MG/2 ML INJECTION IVP ONE (16:44)
[2017-07-07] MEDS ORDERED: FentaNYL 100 MCG/2 ML INJECTION IVP ONE (16:44)
[2017-07-07] MEDS ORDERED: NS 0.9% INJ ONE (16:44)
[2017-07-07] MEDS ORDERED: CEFAZOLIN PREMIX (MC ONLY) 2 GM/50 ML BAG IV ONE (16:47)
[2017-07-07] MEDS ORDERED: CEFAZOLIN 1 G INJECTION IVP ONE (16:47)
[2017-07-07] MEDS: OXYTOCIN BOLUS BAG 30 UNIT/500 ML ML IV SCH ×2 (17:43→18:31)
[2017-07-07] MEDS ORDERED: NALBUPHINE 10 MG/ML INJECTION IVP PRN (18:51)
[2017-07-07] MEDS ORDERED: NALOXONE 2 MG/2 ML INJECTION PFS IVP PRN (18:51)
[2017-07-07] MEDS ORDERED: ONDANSETRON 4 MG/2 ML INJECTION IVP PRN ×2 (18:51→19:47)
[2017-07-07] MEDS ORDERED: METHYLERGONOVINE 0.2 MG/ML INJECTION IM ONE (18:53)
--- NOTE | 2017-07-07 18:53 | Anesthesia Postoperative Note ---
- Date and Time Date: 07/07/17 Time: 18:52 - Status Patient Participated in Evaluation: Patient Participated in Person Respiratory Function: Airway Patent, Regular Respirations Cardiovascular Function: Regular Pulse EKG: Sinus Rhythm Mental Status: Alert and Oriented Pain Intensity: 0 (spinal still intact) Hydration: IV Infusing Complications During Recover: None Apparent - Follow-Up Instructions Instructions: Per Surgeon
[2017-07-07] MEDS ORDERED: SIMETHICONE 80 MG CHEWABLE TABLET PO PRN (19:47)
[2017-07-07] MEDS ORDERED: ACETAMINOPHEN 500 MG TABLET PO PRN (19:47)
[2017-07-07] MEDS ORDERED: METOCLOPRAMIDE 10mg/2ml INJECTION IVP PRN (19:47)
[2017-07-07] MEDS ORDERED: OXYTOCIN DRIP 30 UNIT/500 ML ML IV SCH (19:47)
[2017-07-07] MEDS ORDERED: DiphenhydrAMINE 25 MG CAPSULE PO PRN (19:47)
[2017-07-07] MEDS ORDERED: HYDROCORTISONE 2.5% CREAM 30gm RECTALLY PRN (19:47)
[2017-07-07] MEDS ORDERED: CALCIUM CARBONATE Chewable 500mg TABLET PO PRN (19:47)
[2017-07-07] MEDS ORDERED: SALINE FLUSH 10ml SYRINGE IV PRN (19:47)
[2017-07-07] MEDS ORDERED: MEASLES-MUMPS-RUBELLA VACCINE 0.5ml INJECTION SQ ONE (19:47)
[2017-07-07] MEDS: D5LR 1,000 ML IV SCH (19:52)
[2017-07-07] MEDS: IBUPROFEN 800 MG TABLET PO PRN (21:32)
[2017-07-07] MEDS: METHYLERGONOVINE 0.2 MG TABLET PO SCH (22:12)
[2017-07-07] MEDS: SIMETHICONE 80 MG CHEWABLE TABLET PO SCH (23:17)
[2017-07-08] MEDS: METHYLERGONOVINE 0.2 MG TABLET PO SCH (04:28)
[2017-07-08] MEDS: HYDROCODONE/APAP 5mg/325mg TABLET PO PRN ×3 (05:12→22:04)
--- NOTE | 2017-07-08 05:40 | Progress Note ---
OB PP Progress Note Free Text - Date Date: 07/08/17 - Progress Note Progress Note: vss af hgb drop last night noted. Another HGB this am is planned. q&a re what to expect PP Cont routine c/s care path
[2017-07-08] MEDS: D5LR 1,000 ML IV SCH (06:45)
[2017-07-08] MEDS: DOCUSATE CALCIUM 240 MG CAPSULE PO SCH (08:56)
[2017-07-08] MEDS: SIMETHICONE 80 MG CHEWABLE TABLET PO SCH ×4 (08:56→22:04)
[2017-07-08] MEDS: IBUPROFEN 800 MG TABLET PO PRN ×2 (10:29→20:36)
--- NOTE | 2017-07-08 10:29 | Operative Note ---
DATE OF SURGERY: 07/07/2017 PREOPERATIVE DIAGNOSES 1. 31-year-old white female G1, P0 at 37.0 weeks gestational age. 2. Di/Di twin gestation. 3. Discordant growth at term. 4. Polyhydramnios of Twin B at term. POSTOPERATIVE DIAGNOSES 1. Twin A - female - 2522 g - 5 pounds 9 ounces - 8//9/9 Apgars - sherri breech presentation - (Kristen Juarez). 2. Twin B - female - 3466 g - 7 pounds 10 ounces - 8/9/9 Apgars - (Brittany Anum) - double footling breech - polyhydramnios. 3. atony. PROCEDURE: Primary low transverse section. EBL: 1200 mL ANESTHESIA: Spinal by Alverto Malhotra CRNA SURGEON: Neno Llamas MD ANGLE SHEAR SET UP OPERATOR: Smitha Yen MD BRIEF DESCRIPTION The patient was seen in the office today after a sonogram. Sonogram showed discordant growth and polyhydramnios in twin B. Twin A was sherri breech and Twin B was transversely converted to double footling breech at delivery. I discussed the case with [facility] in [place] and they recommended delivery today because of the polyhydramnios and discordant growth. was done because of malpresentation. After adequate spinal anesthesia the patient was prepped and draped in the left lateral decubitus position. A Pfannenstiel skin incision was made with a sharp knife and carried down to the fascia which was incised transversely with Kelley scissors. Rectus fascia was bluntly and sharply dissected off the rectus muscles. Rectus muscles were divided. Peritoneum was isolated, entered and extended cephalad and caudad. A bladder blade was inserted and the bladder was dissected off the lower uterine segment. A transverse incision was made in the lower uterine segment with a sharp knife and it was extended with my fingers. I entered Twin A's sac and delivered from sherri breech presentation. was bulb suctioned after delivery of the head. Cord was doubly clamped and cut and the infant was received by Dr. Gianluca Benjamin of Pediatrics. Then the bag for Twin B was broken and a double footling breech presentation delivery was performed. was bulb suctioned after delivery of the head. Cord was doubly clamped with curved clamps and then cut. The infant was again received by Gianluca Benjamin of Pediatrics. The placenta was removed manually and will be sent to Pathology. The uterus was cleansed with moist lap sponges and then externalized and closed with 0- Monocryl in a running locking suture bilaterally from the lateral aspects medially. There is a slight hematoma forming on the upper edge so I did a couple of sutures of 0-Monocryl to stop that. There was a little bleeding from the lower edge of the right far margins so I did a 3-0 chromic simple stitch over the top of the right angle clamp and that solved that. Then the bladder flap was reapproximated with the visceral peritoneum and the uterus was returned to the abdominal cavity. Then the peritoneum was closed with 3-0 Vicryl in a running nonlocking fashion. Fascia was closed using 0-Vicryl in a running nonlocking fashion bilaterally from the lateral aspects medially. Carlitos's fascia was closed with 3-0 Vicryl in a running nonlocking fashion. Skin was closed with a 3-0 undyed Vicryl in a subcuticular manner. A couple of additional surface stitches were placed to keep the skin edges tight. While the patient was still in the room some blood clots were expressed from the uterus so I did a sweep digitally and got multiple blood clots. The uterus started to clamp down again and I gave an IM dose of Methergine as well. The patient went to the recovery room in stable condition. Blood counts were ordered for later this evening. MTDD
[2017-07-08] MEDS: IRON POLYSACCHARIDE COMPLEX 150 MG CAPSULE PO SCH (11:47)
[2017-07-09] MEDS: HYDROCODONE/APAP 5mg/325mg TABLET PO PRN ×3 (00:27→15:45)
[2017-07-09] MEDS: IBUPROFEN 800 MG TABLET PO PRN ×3 (04:25→20:35)
[2017-07-09] MEDS: SIMETHICONE 80 MG CHEWABLE TABLET PO SCH ×3 (09:28→20:39)
[2017-07-09] MEDS: IRON POLYSACCHARIDE COMPLEX 150 MG CAPSULE PO SCH (09:28)
[2017-07-09] MEDS: DOCUSATE CALCIUM 240 MG CAPSULE PO SCH (09:29)
--- NOTE | 2017-07-09 10:07 | OB/GYN Progress Note ---
OB-PP Progress Note - General PPD2 Maternal Group B Strep: Negative Maternal blood type: O- Maternal Rubella Status: Not Immune General: Babies both A neg. - Subjective Date: 07/09/17 Lochia: Minimal Pain: controlled Voiding: voiding - Objective Vital Signs: Last Vital Signs Temp 97.6 F 07/09/17 07:55 Pulse 86 07/09/17 07:55 Resp 16 07/09/17 07:55 BP 130/67 07/09/17 07:55 Pulse Ox 97 07/09/17 07:55 General: alert and oriented Abdomen: fundus firm, non-tender, soft, non-distended Incision: normal, clean, no erythema, dry, intact Extremities: non-tender - Assessment Assessment: Primary C/S - Plan Plan: routine care Expected date of discharge: 07/10/17
[2017-07-09 16:06] VITALS: RESP 18
[2017-07-10 02:08] VITALS: PULSE 96; O2SAT 96
[2017-07-10] MEDS: HYDROCODONE/APAP 5mg/325mg TABLET PO PRN (02:31)
[2017-07-10] MEDS: SIMETHICONE 80 MG CHEWABLE TABLET PO SCH (02:32)
[2017-07-10 08:49] VITALS: BP 137/79; TEMP 98.2
[2017-07-10] MEDS: DOCUSATE CALCIUM 240 MG CAPSULE PO SCH (10:13)
[2017-07-10] MEDS: IBUPROFEN 800 MG TABLET PO PRN (10:13)
[2017-07-10] MEDS: IRON POLYSACCHARIDE COMPLEX 150 MG CAPSULE PO SCH (10:14)
== END 2017-07-10 13:29 | disposition home or self-care (01) | DRG 765 ==
LOC: MC 16:12
PROVIDERS: ADMIT Obstetrics & Gynecology; ATTEND Obstetrics & Gynecology